=== PATIENT | female | born 2000 | race African-American/Black ===

== ENCOUNTER 2018-12-02 15:32 | Emergency (ER) | payer SELFPAY ==
[2018-12-02 16:08] VITALS: BP 138/95
[2018-12-02] MEDS ORDERED: ONDANSETRON HCL INJ/PF 4 MG/2 ML SDV IV ONE (16:26)
[2018-12-02] MEDS ORDERED: DIPHENHYDRAMINE HCL 50 MG/ML VIAL IV ONE (16:26)
[2018-12-02] MEDS ORDERED: NORMAL SALINE 1000 ML 1,000 ML IV ONE (16:26)
[2018-12-02] MEDS ORDERED: METOCLOPRAMIDE HCL INJ/PF 10 MG/2 ML SDV IV ONE (16:27)
--- NOTE | 2018-12-02 16:30 | ER Document Report ---
ED Medical Screen (RME) - General Chief Complaint: Dizziness Stated Complaint: DIZZY, NAUSEA, LEG NUMBNESS Time Seen by Provider: 12/02/18 16:18 Primary Care Provider: TARA LITTLE MD [Primary Care Provider] - Follow up as needed Mode of Arrival: Ambulatory Information source: Patient Notes: 18-year-old female with a history of lupus and asthma presents emergency dep artment with a 6-week history of headaches, nausea, syncope. Patient states that she has been feeling lightheaded intermittently. She has had one syncopal episode. She denies hitting her head. She states that someone caught her. Patient states that she is also having a chronic headache. She states that it is located on the right side and is a throbbing sensation that radiates to the left neck. She denies any alleviating or exacerbating factors. Not abrupt onset. Not the worst headache. No associated fever or neck pain. She has tried Motrin without much relief of symptoms. Patient states that she is having associated numbness and tingling to her bilateral hands and her bilateral legs. She denies any weakness, speech changes. I have greeted and performed a rapid initial assessment of this patient. A comprehensive ED assessment and evaluation of the patient, analysis of test results and completion of the medical decision making process will be conducted by additional ED providers. PHYSICAL EXAMINATION: GENERAL: Well-appearing, well-nourished and in no acute distress. HEAD: Atraumatic, normocephalic. EYES: Pupils equal round extraocular movements intact, conjunctiva are normal. ENT: Nares patent NECK: Normal range of motion LUNGS: No respiratory distress Musculoskeletal: Normal range of motion NEUROLOGICAL: Normal speech. PSYCH: Normal mood, normal affect. SKIN: Warm, Dry, normal turgor, no rashes or lesions noted. TRAVEL OUTSIDE OF THE [place] IN LAST 30 DAYS: No - Related Data Allergies/Adverse Reactions: rifampin Allergy (Verified 12/02/18 16:12) cats Allergy (Uncoded 12/02/18 15:34) Past Medical History Pulmonary Medical History: Reports: Hx Asthma Renal/ Medical History: Denies: Hx Peritoneal Dialysis - Immunizations Immunizations up to date: Yes Hx Diphtheria, Pertussis, Tetanus Vaccination: Yes Physical Exam - Vital signs Vitals: Temp Pulse Resp BP Pulse Ox 98.1 F 80 20 138/95 H 100 12/02/18 16:07 12/02/18 16:07 12/02/18 16:07 12/02/18 16:07 12/02/18 16:07 Course - Vital Signs Vital signs: Temp Pulse Resp BP Pulse Ox 98.1 F 80 20 138/95 H 100 12/02/18 16:07 12/02/18 16:07 12/02/18 16:07 12/02/18 16:07 12/02/18 16:07 Doctor's Discharge - Discharge Referrals: TARA LITTLE MD [Primary Care Provider] - Follow up as needed
[2018-12-02 16:57] LABS: ABSOLUTE BASOPHILS # (AUTO) 0.1 10^3/uL (0.0-0.2); ABSOLUTE EOSINOPHILS # (AUTO) 0.3 10^3/uL (0.0-0.6); ABSOLUTE LYMPHOCYTES (AUTO) 1.8 10^3/uL (0.5-4.7); ABSOLUTE MONOCYTES (AUTO) 0.6 10^3/uL (0.1-1.4); ABSOLUTE NEUT (AUTO) 2.7 10^3/uL (1.7-8.2); BASOPHILS % (AUTO) 1.1 % (0-2); EOSINOPHILS % (AUTO) 5.3 % (0-6); HEMATOCRIT 38.9 % (36.0-47.0); HEMOGLOBIN 12.5 g/dL (12.0-15.5); LYMPHOCYTES % (AUTO) 32.9 % (13-45); MEAN CORPUSCULAR HGB CONC 32.1 g/dL (32.0-36.0); MEAN CORPUSCULAR VOLUME 75 fl (80-97); MONOCYTES % (AUTO) 11.4 % (3-13); PLATELET COUNT 256 10^3/uL (150-450); RED CELL DISTRIBUTION WIDTH 14.6 % (11.5-14.0); SEGMENTED NEUTROPHILS % (AUTO) 49.3 % (42-78); TOTAL CELLS COUNTED % (AUTO) 100 %; WHITE BLOOD COUNT 5.5 10^3/uL (4.0-10.5)
[2018-12-02 16:58] LABS: APPEARANCE,URINE SLIGHTLY-CLOUDY; BILIRUBIN,URINE NEGATIVE (NEGATIVE); COLOR,URINE YELLOW; GLUCOSE, URINE NEGATIVE (NEGATIVE); KETONES,URINE NEGATIVE (NEGATIVE); LEUKOCYTE ESTERASE,URINE TRACE (NEGATIVE); NITRITE,URINE NEGATIVE (NEGATIVE); PROTEIN,URINE NEGATIVE (NEGATIVE); URINE SPECIFIC GRAVITY 1.018
[2018-12-02 18:30] LABS: ALANINE AMINOTRANSFERASE 25 U/L (9-52); ALBUMIN 4.3 g/dL (3.5-5.0); ALKALINE PHOSPHATASE 64 U/L (38-126); ANION GAP 9 (5-19); ASPARTATE AMINO TRANSFERASE 20 U/L (14-36); BILIRUBIN,DIRECT 0.1 mg/dL (0.0-0.4); BILIRUBIN,TOTAL 0.6 mg/dL (0.2-1.3); BLOOD UREA NITROGEN 11 mg/dL (7-20); CALCIUM 9.2 mg/dL (8.4-10.2); CARBON DIOXIDE 26 mmol/L (22-30); CHLORIDE 107 mmol/L (98-107); GLUCOSE 81 mg/dL (75-110); POTASSIUM 3.8 mmol/L (3.6-5.0); SODIUM 141.8 mmol/L (137-145); TOTAL PROTEIN 7.7 g/dL (6.3-8.2)
--- NOTE | 2018-12-02 19:30 | ER Document Report ---
ED General - General Chief Complaint: Dizziness Stated Complaint: DIZZY, NAUSEA, LEG NUMBNESS Time Seen by Provider: 12/02/18 16:18 Primary Care Provider: TARA LITTLE MD [Primary Care Provider] - Follow up as needed Mode of Arrival: Ambulatory TRAVEL OUTSIDE OF THE [place] IN LAST 30 DAYS: No - HPI Notes: Patient presents the emergency department for evaluation. She has had a headache intermittently for over 6 weeks. She has started having presyncopal and syncopal episodes over the last 36 hours. She states she is not fully passed out all the way. She feels weak and dizzy. She denies any vertiginous symptoms. No recent head injuries. She denies any visual changes at this time, but states she has had "black spots" in front of her vision. She is currently having an autoimmune workup as an outpatient. She was found to have a positive ROSANA. She has a follow-up appointment with her primary care physician this week. She denies any chest pain or shortness of breath. - Related Data Allergies/Adverse Reactions: rifampin Allergy (Verified 12/02/18 16:12) cats Allergy (Uncoded 12/02/18 15:34) Past Medical History - General Information source: Patient, Parent - Social History Smoking Status: Never Smoker Family History: Reviewed & Not Pertinent Patient has suicidal ideation: No Patient has homicidal ideation: No Pulmonary Medical History: Reports: Hx Asthma Renal/ Medical History: Denies: Hx Peritoneal Dialysis - Immunizations Immunizations up to date: Yes Hx Diphtheria, Pertussis, Tetanus Vaccination: Yes Review of Systems - Review of Systems Constitutional: Malaise, Weakness EENT: Other Cardiovascular: No symptoms reported. denies: Chest pain Respiratory: No symptoms reported Gastrointestinal: No symptoms reported Musculoskeletal: No symptoms reported Skin: No symptoms reported Neurological/Psychological: See HPI Physical Exam - Vital signs Vitals: Temp Pulse Resp BP Pulse Ox 98.1 F 80 20 138/95 H 100 12/02/18 16:07 12/02/18 16:07 12/02/18 16:07 12/02/18 16:07 12/02/18 16:07 Notes: Patient is awake and alert, no acute distress. Head is normocephalic, atraumatic. Pupils equal round reactive to light. Posterior pharynx nonerythematous. Neck is supple without thyromegaly or adenopathy, no meningismus. Heart is regular rate and rhythm. Lungs are clear to auscultation bilaterally. Abdomen is soft nontender with normoactive bowel sounds. Extremities without cyanosis, clubbing, edema. Patient is awake, alert, oriented x3. Cranial nerves II through XII are grossly intact without focal neurological deficits. Strength is plus 5 out of 5 bilateral upper and lower extremities. Reflexes are symmetrical. Gait is within normal limits. Course - Re-evaluation Re-evalutation: 12/02/18 19:31 Patient presents to the emergency department for evaluation of headache and presyncopal episodes. Her vital signs are largely unremarkable. Her physical exam is unremarkable. I cannot find a clear etiology for this. Certainly in her age group vasovagal syncope would be the most likely etiology. She has no neurological deficits. Her EKG shows no significant abnormality's. She is feeling improved in regards to her headache. She has continued follow-up as an outpatient. This was discussed at length with the patient and her family and t hey are amenable to discharge. She is to return to the ED with worsening or new concerning symptoms of any sort. - Vital Signs Vital signs: Temp Pulse Resp BP Pulse Ox 98.1 F 80 20 138/95 H 100 12/02/18 16:07 12/02/18 16:07 12/02/18 16:07 12/02/18 16:07 12/02/18 16:07 - Laboratory Result Diagrams: 12/02/18 16:40 12/02/18 18:00 Laboratory results interpreted by me: 12/02/18 12/02/18 16:40 16:40 MCV 75 L MCH 24.0 L RDW 14.6 H Urine Blood SMALL H Urine Urobilinogen 2.0 H Ur Leukocyte Esterase TRACE H - EKG Interpretation by Me Additional EKG results interpreted by me: 12/02/18 19:30 Sinus mechanism with a rate of 75 bpm. Normal axis, intervals, no acute ST-T wave changes concerning for ischemia or infarction. Normal QT interval. Discharge - Discharge Clinical Impression: Syncope, near, Headache Condition: Good Disposition: HOME, SELF-CARE Instructions: Headache ([facility]), Dizziness ([facility]) Additional Instructions: Follow-up with your doctor next week. Return to the emergency department with worsening or new concerning symptoms. Referrals: TARA LITTLE MD [Primary Care Provider] - Follow up as needed
--- NOTE | 2018-12-03 23:57 | EKG REPORT ---
SEVERITY:- NORMAL ECG - SINUS RHYTHM : Confirmed by: Soila Donald 03-Dec-2018 23:55:49
== END 2018-12-02 19:58 | disposition home or self-care (01) ==
LOC: ER 15:32
DX: R55 Syncope and collapse (principal); R42 Dizziness and giddiness; R11.0 Nausea; R20.0 Anesthesia of skin; R51 Headache
CPT/HCPCS: 93005; 99284; 96374; 96375; 36415; 85025; 81025; 80053; 81001; 93010; J1200; J2765; J7030

== ENCOUNTER 2019-03-22 01:16 | Emergency (ER) | payer BC ==
[2019-03-22] MEDS ORDERED: NEOMY SULF/POLYMYX B SULF/HC OTIC SUSP 10 ML AD ONE (05:26)
--- NOTE | 2019-03-22 05:33 | ER Document Report ---
ED ENT - General Chief Complaint: Drainage from Ear Stated Complaint: DISCHARGE FROM EAR Time Seen by Provider: 03/22/19 05:21 Primary Care Provider: TARA LITTLE MD [Primary Care Provider] - Follow up as needed TRAVEL OUTSIDE OF THE [place] IN LAST 30 DAYS: No - HPI Notes: Patient is a 18-year-old female that presents to the emergency department for chief complaint of right ear pain. Patient states she has had pain in her right ear for the last month. She has had intermittent drainage in the right ear for the last 2 weeks. She states it is now difficult to hear out of her right ear. She denies putting anything in her ear including liquids or Q-tips. She states sometimes the drainage appears blood-tinged. She denies any headaches, fevers or sick contacts. Past Medical History: Asthma Past Surgical History: Negative Social History: Denies drugs alcohol and tobacco Family History: Reviewed and noncontributory for presenting illness Allergies: Reviewed, see documented allergy list. REVIEW OF SYSTEMS: CONSTITUTIONAL : No fever No chills No diaphoresis No recent illness EENT: No vision changes No congestion No sore throat Right ear pain CARDIOVASCULAR: No chest pain No palpitations RESPIRATORY: No shortness of breath No cough No difficulty breathing GASTROINTESTINAL: No abdominal pain No nausea No vomiting No diarrhea GENITOURINARY: No dysuria No hematuria No difficulty urinating MUSCULOSKELETAL: No back pain No leg pain No arm pain SKIN: No rashes No lesions LYMPHATIC: No swollen, enlarged glands. NEUROLOGICAL: No lightheadedness No headache No weakness No paresthesias PSYCHIATRIC: No anxiety No depression PHYSICAL EXAMINATION: Vital signs reviewed, nursing noted reviewed. GENERAL: Well-appearing, well-nourished and in no acute distress. HEAD: Atraumatic, normocephalic. EYES: Eyes appear normal, extraocular movements intact, sclera anicteric, conjunctiva are normal. ENT: Right external ear canal edema with purulent drainage and tenderness with pinna movement. No mastoid tenderness bilaterally. Right anterior auricular lymphadenopathy. Nares patent, oropharynx clear without exudates. Moist mucous membranes. NECK: Normal range of motion, supple with anterior chain lymphadenopathy LUNGS: Breath sounds clear to auscultation bilaterally and equal. No wheezes rales or rhonchi. HEART: Regular rate and rhythm without murmurs ABDOMEN: Soft, nontender, normoactive bowel sounds. No rebound, guarding, or rigidity. No masses appreciated. EXTREMITIES: Nontender, good range of motion, no pitting or edema. NEUROLOGICAL: No focal neurological deficits. Moves all extremities spontaneously Motor and sensory grossly intact on exam. PSYCH: Normal mood, normal affect. SKIN: Warm, Dry, normal turgor, no rashes or lesions noted on exposed skin - Related Data Allergies/Adverse Reactions: rifampin Allergy (Verified 12/02/18 16:12) cats Allergy (Uncoded 12/02/18 15:34) Past Medical History - Social History Smoking Status: Never Smoker Family History: Reviewed & Not Pertinent Pulmonary Medical History: Reports: Hx Asthma Renal/ Medical History: Denies: Hx Peritoneal Dialysis - Immunizations Immunizations up to date: Yes Hx Diphtheria, Pertussis, Tetanus Vaccination: Yes Physical Exam - Vital signs Vitals: Temp Pulse Resp BP Pulse Ox 98.4 F 82 16 120/74 100 03/22/19 01:29 03/22/19 01:03/22/19 01:03/22/19 01:03/22/19 01:29 Course - Re-evaluation Re-evalutation: 03/22/19 05:32 Vitals reviewed. Nursing notes reviewed. Patient is afebrile and nontoxic in appearance. She has a right otitis externa. Her right TM is partially visualized and appears normal. There is no mastoid tenderness to suggest acute mastoiditis. Patient will be started on antibiotics. She will follow with her PCP for reevaluation in the next few days. She is stable for discharge. - Vital Signs Vital signs: Temp Pulse Resp BP Pulse Ox 98.4 F 82 16 120/74 100 03/22/19 01:29 03/22/19 01:03/22/19 01:03/22/19 01:03/22/19 01:29 Discharge - Discharge Clinical Impression: Otitis externa Qualifiers: Otitis externa type: unspecified type Chronicity: acute Laterality: right Qualified Code(s): H60.501 - Unspecified acute noninfective otitis externa, right ear Condition: Stable Disposition: HOME, SELF-CARE Instructions: Otitis Externa ([facility]) Additional Instructions: Please return to the emergency department if you have any worsening, or concern of your symptoms. Please return to the emergency department if you develop chest pain, difficulty breathing, severe abdominal pain, or ongoing vomiting. Please follow-up with your primary care physician in 2-3 days and any other recommended physicians. If prescribed, take all medications as directed. If you have any questions or concerns do not hesitate to return the emergency department for evaluation. Take Tylenol or ibuprofen as directed on the label as needed for pain. Do not put anything other than the eardrops in your ears Prescriptions: Neomycin/Polymyxin B Sulf/Hc [Trajbjtj-Aoxxigvhb-Kt Ear Soln] 4 drop AD TID 7 Days solution Referrals: TARA LITTLE MD [Primary Care Provider] - Follow up in 3-5 days
[2019-03-22 05:43] VITALS: BP 137/75
== END 2019-03-22 05:43 | disposition home or self-care (01) ==
LOC: ER 01:16
DX: H60.501 Unspecified acute noninfective otitis externa, right ear (principal); H92.01 Otalgia, right ear
CPT/HCPCS: 99282; J3490

== ENCOUNTER 2019-11-03 22:40 | Emergency (ER) | payer SELFPAY ==
[2019-11-03] MEDS ORDERED: IPRATROPIUM/ALBUTEROL 0.5-2.5 MG/3 ML AMPUL NEB ONE (23:05)
[2019-11-03] MEDS ORDERED: PREDNISONE 20 MG TABLET PO ONE (23:06)
--- NOTE | 2019-11-03 23:15 | ER Document Report ---
ED Medical Screen (RME) - General Chief Complaint: Shortness Of Breath Stated Complaint: SHORTNESS OF BREATH Time Seen by Provider: 11/03/19 23:02 Primary Care Provider: LELO FIORE APRN [Primary Care Provider] - Follow up as needed Notes: 19-year-old female with history of asthma to the emergency department with complaints of about 1 week worth of shortness of breath and worsening asthma. She states that she has been using her Qvar inhaler but has not been helping and now she is out. She denies any fevers or chills. She denies any ling cough. She is never been intubated or hospitalized for her asthma before. She is followed by Dr. Noyola. She does not smoke. I performed a brief medical screening exam on patient. She has inspiratory and expiratory wheezes throughout. Can hear her audibly wheezing in triage. I have placed orders for DuoNeb and prednisone. I will have her further managed and evaluated by main side provider. TRAVEL OUTSIDE OF THE [place] IN LAST 30 DAYS: No - Related Data Allergies/Adverse Reactions: rifampin Allergy (Verified 11/03/19 22:56) cats Allergy (Uncoded 05/02/19 12:15) Past Medical History - Past Medical History Cardiac Medical History: Denies: Hx Coronary Artery Disease, Hx Heart Attack, Hx Hypertension Pulmonary Medical History: Reports: Hx Asthma - albuterol last used 05/09 Denies: Hx Bronchitis, Hx COPD, Hx Pneumonia Neurological Medical History: Denies: Hx Cerebrovascular Accident, Hx Seizures Renal/ Medical History: Denies: Hx Peritoneal Dialysis Musculoskeltal Medical History: Denies Hx Arthritis Skin Medical History: Reports Hx Cellulitis, Reports Hx Psoriasis - Immunizations Immunizations up to date: Yes Hx Diphtheria, Pertussis, Tetanus Vaccination: No Physical Exam - Vital signs Vitals: Temp Pulse Resp BP Pulse Ox 98.7 F 90 22 H 150/76 H 100 11/03/19 22:45 11/03/19 22:45 11/03/19 22:45 11/03/19 22:45 11/03/19 22:45 Course - Vital Signs Vital signs: Temp Pulse Resp BP Pulse Ox 98.7 F 90 22 H 150/76 H 100 11/03/19 22:45 11/03/19 22:45 11/03/19 22:45 11/03/19 22:45 11/03/19 22:45 Doctor's Discharge - Discharge Referrals: LELO FIORE APRN [Primary Care Provider] - Follow up as needed
[2019-11-04] MEDS ORDERED: IPRATROPIUM/ALBUTEROL 0.5-2.5 MG/3 ML AMPUL NEB ONE ×3 (00:39→00:40)
--- NOTE | 2019-11-04 00:48 | ER Document Report ---
ED Respiratory Problem - General Chief Complaint: Shortness Of Breath Stated Complaint: SHORTNESS OF BREATH Time Seen by Provider: 11/03/19 23:02 Primary Care Provider: LELO FIORE APRN [NO LOCAL MD] - Follow up as needed Mode of Arrival: Ambulatory Information source: Patient Notes: 19-year-old female presented to ED for complaint of cough congestion shortness of breath. She states she does have a history of asthma and is supposed to be taking Qvar and albuterol nebulizer. She states she is out of the Qvar and nebulizer since September. TRAVEL OUTSIDE OF THE [place] IN LAST 30 DAYS: No - HPI Patient complains to provider of: Asthma, Cough, Short of breath Onset: Last week Duration: Continuous Initiating Event: Out of meds Quality of pain: No pain Severity: None Pain Level: Denies Cough: Nonproductive Sputum amount: None At home treatment: Bronchodilators, Inhaled steroids Associated symptoms: Short of breath, Wheezing Similar symptoms previously: Yes Recently seen / treated by doctor: No - Related Data Allergies/Adverse Reactions: rifampin Allergy (Verified 11/03/19 23:30) cats Allergy (Uncoded 11/03/19 23:30) Past Medical History - General Information source: Patient - Social History Smoking Status: Never Smoker Frequency of alcohol use: None Drug Abuse: None Family History: Arthritis, Hypertension, Reviewed & Not Pertinent Patient has suicidal ideation: No Patient has homicidal ideation: No - Past Medical History Cardiac Medical History: Reports: None Pulmonary Medical History: Reports: Hx Asthma EENT Medical History: Reports: None Neurological Medical History: Reports: None Endocrine Medical History: Reports: None Renal/ Medical History: Reports: None Malignancy Medical History: Reports: None GI Medical History: Reports: None Musculoskeletal Medical History: Reports None Skin Medical History: Reports Hx Cellulitis, Reports Hx Psoriasis Psychiatric Medical History: Reports: None Traumatic Medical History: Reports: None Infectious Medical History: Reports: None Surgical Hx: Negative Past Surgical History: Reports: None - Immunizations Immunizations up to date: Yes Hx Diphtheria, Pertussis, Tetanus Vaccination: No Review of Systems - Review of Systems Constitutional: No symptoms reported EENT: Nose discharge Cardiovascular: No symptoms reported Respiratory: Cough, Short of breath, Wheezing Gastrointestinal: No symptoms reported Genitourinary: No symptoms reported Female Genitourinary: No symptoms reported Musculoskeletal: No symptoms reported Skin: No symptoms reported Hematologic/Lymphatic: No symptoms reported Neurological/Psychological: No symptoms reported -: Yes All other systems reviewed and negative Physical Exam - Vital signs Vitals: Temp Pulse Resp BP Pulse Ox 98.7 F 90 22 H 150/76 H 100 11/03/19 22:45 11/03/19 22:45 11/03/19 22:45 11/03/19 22:45 11/03/19 22:45 Interpretation: Normal - General General appearance: Appears well, Alert - HEENT Head: Normocephalic, Atraumatic Eyes: Normal Pupils: PERRL Ears: Normal External canal: Normal Tympanic membrane: Normal Sinus: Normal Nasal: Purulent discharge, Swelling Mucous membranes: Normal Pharynx: Normal Neck: Normal - Respiratory Respiratory status: No respiratory distress Chest status: Nontender Breath sounds: Nonproductive cough, Wheezing Chest palpation: Normal - Cardiovascular Rhythm: Regular Heart sounds: Normal auscultation Murmur: No - Abdominal Inspection: Normal Distension: No distension Bowel sounds: Normal Tenderness: Nontender Organomegaly: No organomegaly - Back Back: Normal, Nontender - Extremities General upper extremity: Normal inspection, Nontender, Normal color, Normal ROM, Normal temperature General lower extremity: Normal inspection, Nontender, Normal color, Normal ROM, Normal temperature, Normal weight bearing. No: Mina's sign - Neurological Neuro grossly intact: Yes Cognition: Normal Orientation: AAOx4 Sruthi Coma Scale Eye Opening: Spontaneous Sruthi Coma Scale Verbal: Oriented [place] Coma Scale Motor: Obeys Commands Sruthi Coma Scale Total: 15 Speech: Normal Motor strength normal: LUE, RUE, LLE, RLE Sensory: Normal - Psychological Associated symptoms: Normal affect, Normal mood - Skin Skin Temperature: Warm Skin Moisture: Dry Skin Color: Normal Course - Re-evaluation Re-evalutation: 11/04/19 02:59 Patient stated she felt much better after her treatments. She was discharged home with prescription for prednisone and albuterol nebulizers. She was instructed please follow-up with her primary care to get her normal asthma medications. Patient verbalized understanding agreement treatment plan and patient was discharged home. - Vital Signs Vital signs: Temp Pulse Resp BP Pulse Ox 97.6 F 106 H 21 H 133/63 H 97 11/04/19 01:04 11/04/19 01:04 11/04/19 01:04 11/04/19 01:04 11/04/19 01:04 Discharge - Discharge Clinical Impression: Asthma exacerbation Qualifiers: Asthma severity: mild Asthma persistence: unspecified Qualified Code(s): J45.901 - Unspecified asthma with (acute) exacerbation Condition: Stable Disposition: HOME, SELF-CARE Additional Instructions: ASTHMA: You have been diagnosed as having asthma. This is a condition where there is episodic tightness in the bronchial tubes. Allergies, infections, and polluted or cold air may be contributing factors. Emergency treatment of a severe asthma attack may include adrenaline shots, or bronchodilator aerosol. You may feel lightheaded, have a decreased exercise tolerance and a rapid pulse for an hour or two. Rest and get plenty of fluids. Home treatment of asthma requires bronchodilator drugs. These can be administered by injection, inhalation, or by mouth. Antibiotics and corticosteroids may be required for some patients. You should avoid chemical fumes, dusts, pollens, and exercising in very cold or dry air. If you smoke, stop!! If you develop a fever, increased wheezing, chest pain, or severe shortness of breath, you should contact the doctor immediately. STEROID MEDICATION: You have been given an injection of or oral medicine of the cortisone/steroid class. This medication is used to control inflammation or allergy. Tamir t is usually only given for a short period of time, until the acute process subsides. There are usually no side effects from short-term use of cortisone-like medications. Some persons feel an increased sense of well-being and are not sleepy at bedtime. Long-term use of cortisone medications is best avoided, unless required for a severe condition. If your condition does not remit, or relapses after the course of corticosteroid medication, you should consult your physician. INHALED BRONCHODILATORS: You have received treatment(s) of and/or prescription for an inhaled bronchodilator -- a medication which stimulates the airways in the lung to dilate. This improves the flow of air in asthma, bronchitis, and emphysema. These medicines have some similarity to adrenaline, and can cause similar side effects: shakiness, racing heart, and a sense of nervousness. These side effects decrease with time. Contact your doctor if these side effects are severe. Do not over-use the medicine. Too-frequent use of the inhaler may make it ineffective. Call your doctor if the inhaler is not controlling your symptoms at the prescribed doses. USE OF ACETAMINOPHEN (Tylenol): Acetaminophen may be taken for pain relief or fever control. It's much safer than aspirin, offering a wider range of "safe" dosages. It is safe during . Some brand names are Tylenol, Panadol, Datril, Anacin 3, Tempra, and Liquiprin. Acetaminophen can be repeated every four hours. The following are maximum recommended dosages: WEIGHT Dose Drops Elixir Chewable(80mg) (LBS.) drprs=droppers tsp=teaspoon 6 40 mg 0.4 ml (1/2) 6-11 80 mg 0.8 ml (full) tsp 1 tab 12-16 120 mg 1 1/2 drprs 3/4 tsp 1 1/2 tabs 17-23 160 mg 2 drprs 1 tsp 2 tabs 24-30 240 mg 3 drprs 1 1/2 tsp 3 tabs 30-35 320 mg 2 tsp 4 tabs 36-41 360 mg 2 1/4 tsp 4 1/2 tabs 42-47 400 mg 2 1/2 tsp 5 tabs 48-53 480 mg 3 tsp 6 tabs 54-59 520 mg 3 1/4 tsp 6 1/2 tabs 60-64 560 mg 3 1/2 tsp 7 tabs 65-70 600 mg 3 3/4 tsp 7 1/2 tabs 71-76 640 mg 4 tsp 8 tabs 77-82 720 mg 4 1/2 tsp 9 tabs 83-88 800 mg 5 tsp 10 tabs >89 pounds or adults 650 mg to 900 mg Acetaminophen can be repeated every four hours. Maximum dose not to exceed 4000 mg a day. These maximum recommended dosages are slightly higher than the dosages written on the product container, but these dosages are very safe and below the toxic dosage for acetaminophen. FOLLOW-UP CARE: If you have been referred to a physician for follow-up care, call the physicians office for an appointment as you were instructed or within the next two days. If you experience worsening or a significant change in your symptoms, notify the physician immediately or return to the Emergency Department at any time for re-evaluation. Prescriptions: Prednisone [Sterapred Ds] 1 pkg PO ASDIR PRN 12 Days tab.ds.pk PRN Reason: Albuterol Sulfate [Ventolin 0.042% Neb 1.25 mg/3 mL Ampul] 1.25 mg NEB Q4 #25 vial.neb Referrals: LELO FIORE APRN [NO LOCAL MD] - Follow up as needed
[2019-11-04 01:09] VITALS: BP 133/63
== END 2019-11-04 01:46 | disposition home or self-care (01) ==
LOC: ER 22:40
DX: J45.901 Unspecified asthma with (acute) exacerbation (principal); R06.02 Shortness of breath; R05 Cough; R09.81 Nasal congestion
CPT/HCPCS: 94640 ×2; 99284; J7512; J7620 ×2

== ENCOUNTER 2020-01-02 07:48 | Emergency (ER) | payer BC ==
[2020-01-02] MEDS ORDERED: BACITRACIN ZINC OINTMENT 15 GM TP ONE (08:41)
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
[2020-01-02 09:49] VITALS: BP 114/66
== END 2020-01-02 09:57 | disposition home or self-care (01) ==
LOC: ER 07:48
DX: T23.571A Corrosion of first degree of right wrist, initial encounter (principal); X58.XXXA Exposure to other specified factors, initial encounter
CPT/HCPCS: 99283; J3490

== ENCOUNTER 2020-04-06 08:10 | Emergency (ER) | payer BC ==
[2020-04-06 08:16] VITALS: BP 116/67
[2020-04-06] MEDS ORDERED: CIPROFLOXACIN HCL 500 MG TABLET PO ONE (08:35)
[2020-04-06] MEDS ORDERED: CIPROFLOXACIN HCL/DEXAMETH OTIC DROP 7.5 ML AU ONE (08:39)
--- NOTE | 2020-04-06 08:42 | ER Document Report ---
ED ENT - General Chief Complaint: Drainage from Ear Stated Complaint: EAR PRESSURE,DRAINAGE Time Seen by Provider: 04/06/20 08:16 Primary Care Provider: TARA LITTLE MD [Primary Care Provider] - Follow up as needed Notes: HPI: 19-year-old female who presents today with what she states is some bilateral ear drainage from 1 month. She did receive antibiotic eardrops by the primary care physician but this is not resolve the issue. She denies a history of diabetes, trauma, fever, vomiting, double blurry vision, sore throat, neck pain or stiffness, or any other acute problems. ROS: See HPI Reviewed vital signs and nursing note as charted by RN. PHYSICAL EXAM: CONSTITUTIONAL: Alert and oriented and responds appropriately to questions. Well-appearing; well-nourished HEAD: Normocephalic; atraumatic EYES: PERRL; Conjunctivae clear, sclerae non-icteric ENT: Patient has no mastoid swelling or tenderness. No extrusion of the pinna. No tenderness when I move each pinna. Patient does have some whitish discharge in bilateral external auditory canals. TMs are nonperforated on visualization with some white pus behind each ear. No lip, mouth, tongue, posterior pharyngeal lesions present. No facial swelling NECK: Supple without meningismus; non-tender; no cervical lymphadenopathy, no masses SKIN: No acute lesions noted NEURO: CN 2-12 intact PSYCH: The patient's mood and manner are appropriate. Grooming and personal hygiene are appropriate. TRAVEL OUTSIDE OF THE [place] IN LAST 30 DAYS: No - Related Data Allergies/Adverse Reactions: rifampin Allergy (Verified 01/02/20 08:05) cats Allergy (Uncoded 01/02/20 08:05) Home Medications: Albuterol. Redihaler Past Medical History - Social History Smoking Status: Never Smoker Drug Abuse: Marijuana Family History: Arthritis, Hypertension, Reviewed & Not Pertinent Patient has homicidal ideation: No - Past Medical History Cardiac Medical History: Denies: Hx Coronary Artery Disease, Hx Heart Attack, Hx Hypertension Pulmonary Medical History: Reports: Hx Asthma Denies: Hx Bronchitis, Hx COPD, Hx Pneumonia Neurological Medical History: Denies: Hx Cerebrovascular Accident, Hx Seizures Renal/ Medical History: Denies: Hx Peritoneal Dialysis Musculoskeletal Medical History: Denies Hx Arthritis Skin Medical History: Reports Hx Cellulitis, Reports Hx Psoriasis - Immunizations Immunizations up to date: Yes Hx Diphtheria, Pertussis, Tetanus Vaccination: No Physical Exam - Vital signs Vitals: Temp Pulse Resp BP Pulse Ox 97.7 F 75 20 116/67 100 04/06/20 08:15 04/06/20 08:15 04/06/20 08:15 04/06/20 08:15 04/06/20 08:15 Course - Re-evaluation Re-evalutation: 04/06/20 08:41 Given the history and physical examination we will obtain an Accu-Chek. I did call and speak directly to the ENT physician to help expedite follow-up what appears to be a bilateral otitis externa. He did recommend both p.o. ciprofloxacin and drops. Patient has not missed any menstrual periods. - Vital Signs Vital signs: Temp Pulse Resp BP Pulse Ox 97.7 F 75 20 116/67 100 04/06/20 08:21 04/06/20 08:15 04/06/20 08:15 04/06/20 08:15 04/06/20 08:15 Discharge - Discharge Clinical Impression: Bilateral otitis externa Qualifiers: Otitis externa type: unspecified type Chronicity: acute Qualified Code(s): H60.503 - Unspecified acute noninfective otitis externa, bilateral Condition: Good Disposition: HOME, SELF-CARE Additional Instructions: Come back immediately for any increased drainage, pain, fever, vomiting, loss of hearing, or any other acute problems. Please take 5 drops of the antibiotic solution into bilateral ears twice daily in addition to the by mouth antibiotics. Please follow-up with ENT and tell the office when you call them that you were seen in the emergency department and Dr. Hager wants to see you the end of this upcoming week. Prescriptions: Ciprofloxacin HCl [Cipro 500 mg Tablet] 500 mg PO BID #10 tablet Referrals: TARA LITTLE MD [Primary Care Provider] - Follow up as needed
== END 2020-04-06 09:19 | disposition home or self-care (01) ==
LOC: ER 08:10
DX: H60.503 Unspecified acute noninfective otitis externa, bilateral (principal); H92.13 Otorrhea, bilateral; J45.909 Unspecified asthma, uncomplicated; Z88.8 Allergy status to other drugs, medicaments and biological substances; Z79.899 Other long term (current) drug therapy
CPT/HCPCS: 99283; 82962; J3490

== ENCOUNTER 2020-04-14 17:30 | Emergency (ER) | payer BC ==
[2020-04-14 17:34] VITALS: BP 135/67
[2020-04-14] MEDS ORDERED: DIPH/PERTUSS(ACELL)/TETANUS VAC/PF 0.5 ML SYR (>=10YO) IM ONE (18:17)
[2020-04-14] MEDS ORDERED: HYDROCODONE/ACETAMINOPHEN 5-325 MG TABLET PO ONE (18:17)
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
--- NOTE | 2020-04-14 18:51 | RADIOLOGY REPORT (SQ) ---
EXAM DESCRIPTION: HAND RIGHT 3 VIEWS IMAGES COMPLETED DATE/TIME: 04/14/2020 6:36 pm REASON FOR STUDY: injury COMPARISON: None. EXAM PARAMETERS: NUMBER OF VIEWS: Three views. TECHNIQUE: AP, lateral and oblique radiographic images acquired of the right hand. LIMITATIONS: None. FINDINGS: MINERALIZATION: Normal. BONES: No acute fracture or dislocation. No worrisome bone lesions. JOINTS: No effusions. SOFT TISSUES: No soft tissue swelling. No foreign body. OTHER: No other significant finding. IMPRESSION: NEGATIVE STUDY OF THE RIGHT HAND. NO RADIOGRAPHIC EVIDENCE OF ACUTE INJURY. TECHNICAL DOCUMENTATION: JOB ID: [id number] 2010 [employer]- All Rights Reserved Reading location - IP/workstation name: [email or web address]
== END 2020-04-14 19:35 | disposition home or self-care (01) ==
LOC: ER 17:30
DX: S60.221A Contusion of right hand, initial encounter (principal); S60.511A Abrasion of right hand, initial encounter; M79.641 Pain in right hand; W22.01XA Walked into wall, initial encounter; Z23 Encounter for immunization; J45.909 Unspecified asthma, uncomplicated
CPT/HCPCS: 90715; 99283

== ENCOUNTER 2020-05-04 15:44 | Emergency (ER) | payer BC ==
--- NOTE | 2020-05-04 16:06 | ER Document Report ---
ED Medical Screen (RME) - General Chief Complaint: Abscess Stated Complaint: ABSCESS/VAGINA Time Seen by Provider: 05/04/20 16:02 Primary Care Provider: TARA LITTLE MD [Primary Care Provider] - Follow up as needed Information source: Patient Notes: This 19-year-old female presents to the emergency room today stating that she has an abscess to the medial aspect of her labia. TRAVEL OUTSIDE OF THE [place] IN LAST 30 DAYS: No - Related Data Allergies/Adverse Reactions: rifampin Allergy (Verified 05/04/20 16:03) tree nut Allergy (Verified 05/04/20 16:03) cats Allergy (Uncoded 01/02/20 08:05) dairy Allergy (Uncoded 05/04/20 16:02) Past Medical History - Past Medical History Cardiac Medical History: Denies: Hx Coronary Artery Disease, Hx Heart Attack, Hx Hypertension Pulmonary Medical History: Reports: Hx Asthma Denies: Hx Bronchitis, Hx COPD, Hx Pneumonia Neurological Medical History: Denies: Hx Cerebrovascular Accident, Hx Seizures Renal/ Medical History: Denies: Hx Peritoneal Dialysis Musculoskeltal Medical History: Denies Hx Arthritis Skin Medical History: Reports Hx Cellulitis, Reports Hx Psoriasis - Immunizations Immunizations up to date: Yes Hx Diphtheria, Pertussis, Tetanus Vaccination: No Doctor's Discharge - Discharge Referrals: TARA LITTLE MD [Primary Care Provider] - Follow up as needed
--- NOTE | 2020-05-04 17:01 | ER Document Report ---
ED General - General Chief Complaint: Abscess Stated Complaint: ABSCESS/VAGINA Time Seen by Provider: 05/04/20 16:02 Primary Care Provider: TARA LITTLE MD [Primary Care Provider] - Follow up as needed Notes: CHIEF COMPLAINT: Vaginal cyst on left HPI: 19-year-old female presenting with a tender area on the lower aspect of the vagina on the left for the last 2 to 3 days. States it opened and drained at work and she wanted it evaluated. No current pelvic pain. No fever. ROS: See HPI - all other systems were reviewed and are otherwise negative Constitutional: no fever or recent illness : no dysuria, + vaginal discharge Integumentary: no rash Allergy: no hives MEDICATIONS: I agree with the patient medications as charted by the RN. ALLERGIES: I agree with the allergies as charted by the RN. PAST MEDICAL HISTORY/PAST SURGICAL HISTORY: Reviewed and agree as charted by RN. SOCIAL HISTORY: Reviewed and agree as charted by RN. FAMILY HISTORY: No significant familial comorbid conditions directly related to patient complaint EXAM: Reviewed vital signs as charted by RN. CONSTITUTIONAL: Alert and oriented and responds appropriately to questions. 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 External genitalia normal. There is still slight swelling in the left vaginal opening over the left Bartholin's gland with a small opening present over the glans that exudes a small amount of purulent discharge on palpation BACK: The back appears normal and is non-tender to palpation, there is no CVA tenderness EXT: Normal ROM in all joints; non-tender to palpation; no cyanosis, no effusions, no edema SKIN: Normal color for age and race; warm; dry; good turgor; no acute lesions noted NEURO: Moves all extremities equally; Motor and sensory function intact PSYCH: The patient's mood and manner are appropriate. Grooming and personal hygiene are appropriate. MDM: 19-year-old female likely with a ruptured Bartholin's abscess. Recommend sitz bath's, no indication for further incision and drainage at this time follow-up [employer] TRAVEL OUTSIDE OF THE [place] IN LAST 30 DAYS: No - Related Data Allergies/Adverse Reactions: rifampin Allergy (Verified 05/04/20 16:03) tree nut Allergy (Verified 05/04/20 16:03) cats Allergy (Uncoded 01/02/20 08:05) dairy Allergy (Uncoded 05/04/20 16:02) Past Medical History - General Information source: Patient - Social History Smoking Status: Current Every Day Smoker Frequency of alcohol use: None Drug Abuse: Marijuana Family History: Arthritis, Hypertension, Reviewed & Not Pertinent Patient has homicidal ideation: No - Past Medical History Cardiac Medical History: Denies: Hx Coronary Artery Disease, Hx Heart Attack, Hx Hypertension Pulmonary Medical History: Reports: Hx Asthma Denies: Hx Bronchitis, Hx COPD, Hx Pneumonia Neurological Medical History: Denies: Hx Cerebrovascular Accident, Hx Seizures Renal/ Medical History: Denies: Hx Peritoneal Dialysis Musculoskeletal Medical History: Denies Hx Arthritis Skin Medical History: Reports Hx Cellulitis, Reports Hx Psoriasis - Immunizations Immunizations up to date: Yes Hx Diphtheria, Pertussis, Tetanus Vaccination: No Physical Exam - Vital signs Vitals: Temp 99.1 F 05/04/20 16:07 Course - Vital Signs Vital signs: Temp Pulse Resp BP Pulse Ox 99.1 F 89 16 122/58 L 98 05/04/20 16:26 05/04/20 16:26 05/04/20 16:26 05/04/20 16:26 05/04/20 16:26 Discharge - Discharge Clinical Impression: Bartholin cyst Condition: Stable Disposition: HOME, SELF-CARE Instructions: Bartholin Gland Cyst or Abscess ([facility]) Additional Instructions: Warm sits baths 2-3 times daily to clean the perineum and vaginal region. Follow-up with [facility] for further evaluation and treatment call for appointment. Return for any concerns Referrals: TARA LITTLE MD [Primary Care Provider] - Follow up as needed KAREN OQUENDO MD [ACTIVE PROVISIONAL STAFF] - Follow up as needed
[2020-05-04 17:10] VITALS: BP 115/60
== END 2020-05-04 17:12 | disposition home or self-care (01) ==
LOC: ER 15:44
DX: N75.0 Cyst of Bartholin's gland (principal); N89.8 Other specified noninflammatory disorders of vagina; F17.200 Nicotine dependence, unspecified, uncomplicated; Z88.8 Allergy status to other drugs, medicaments and biological substances; J45.909 Unspecified asthma, uncomplicated
CPT/HCPCS: 99282

== ENCOUNTER 2020-06-19 22:46 | Inpatient (IN) | payer BC ==
[2020-06-19] MEDS ORDERED: IPRATROPIUM/ALBUTEROL 0.5-2.5 MG/3 ML AMPUL NEB ONE (23:26)
[2020-06-19] MEDS ORDERED: PREDNISONE 20 MG TABLET PO ONE (23:27)
--- NOTE | 2020-06-19 23:28 | ER Document Report ---
ED Respiratory Problem - General Chief Complaint: Shortness Of Breath Stated Complaint: SHORTNESS OF BREATH Time Seen by Provider: 06/19/20 23:12 Notes: Patient is a 19-year-old female with a history of asthma that comes to the emergency department for chief complaint of wheezing and occasional cough that started earlier today. She states that she has had mild asthma symptoms for the past 3 weeks but today it became much worse. Previously her symptoms simply resolved with her rescue inhaler. She is out of her home nebulizer medications as well. She denies fever, chest pain, sick exposures, or smoking. She denies any other medical history or any other complaints. She denies . TRAVEL OUTSIDE OF THE [place] IN LAST 30 DAYS: No - Related Data Allergies/Adverse Reactions: rifampin Allergy (Verified 05/04/20 16:03) tree nut Allergy (Verified 05/04/20 16:03) cats Allergy (Uncoded 01/02/20 08:05) dairy Allergy (Uncoded 05/04/20 16:02) Home Medications: Albuterol inhaler Past Medical History - General Information source: Patient - Social History Smoking Status: Never Smoker Chew tobacco use (# tins/day): No Frequency of alcohol use: None Drug Abuse: Marijuana Lives with: Family Family History: Arthritis, Hypertension, Reviewed & Not Pertinent - Past Medical History Cardiac Medical History: Denies: Hx Coronary Artery Disease, Hx Heart Attack, Hx Hypertension Pulmonary Medical History: Reports: Hx Asthma Denies: Hx Bronchitis, Hx COPD, Hx Pneumonia Neurological Medical History: Denies: Hx Cerebrovascular Accident, Hx Seizures Renal/ Medical History: Denies: Hx Peritoneal Dialysis Musculoskeletal Medical History: Denies Hx Arthritis Skin Medical History: Reports Hx Cellulitis, Reports Hx Psoriasis - Immunizations Immunizations up to date: Yes Hx Diphtheria, Pertussis, Tetanus Vaccination: Yes Review of Systems - Review of Systems Constitutional: No symptoms reported EENT: No symptoms reported Cardiovascular: No symptoms reported Respiratory: See HPI Gastrointestinal: No symptoms reported Genitourinary: No symptoms reported Female Genitourinary: No symptoms reported Musculoskeletal: No symptoms reported Skin: No symptoms reported Hematologic/Lymphatic: No symptoms reported Neurological/Psychological: No symptoms reported Physical Exam - Vital signs Vitals: Temp Pulse Resp BP Pulse Ox 99.5 F 107 H 18 130/77 H 99 06/19/20 23:50 06/19/20 23:50 06/19/20 23:50 06/19/20 23:50 06/19/20 23:50 - Notes Notes: GENERAL: Alert, interacts well. No acute distress. HEAD: Normocephalic, atraumatic. EYES: Pupils equal, round, and reactive to light. Extraocular movements intact. ENT: Oral mucosa moist, tongue midline. Oropharynx unremarkable. Airway patent. Nares patent, sinuses non-tender, ear canals unremarkable, TM's intact. NECK: Full range of motion. Supple. Trachea midline. No lymphadenopathy. LUNGS: Decreased breath sounds throughout with expiratory wheezing throughout HEART: Tachycardia, normal rhythm, no murmur ABDOMEN: Soft, non-tender. Non-distended. EXTREMITIES: Moves all 4 extremities spontaneously. No edema, normal radial and dorsalis pedis pulses bilaterally. No cyanosis. BACK: no cervical, thoracic, lumbar midline tenderness. No saddle anesthesia, normal distal neurovascular exam. Moves all extremities in full range of motion. NEUROLOGICAL: Alert and oriented x3. Normal speech. Cranial nerves II through XII grossly intact. Strength 5/5 in all extremities. PSYCH: Normal affect, normal mood. SKIN: Warm, dry, normal turgor. No rashes or lesions noted. Course - Re-evaluation Re-evalutation: On initial evaluation patient is wheezing throughout all lung caicedo and she is tachycardic. She does not have labored breathing, she is alert and otherwise well-appearing, she does not have a fever. Patient will be treated with duo nebs and steroids, chest x-ray pending, she will be reevaluated. On reevaluation patient has resolution of wheezing but now she has scattered rhonchi and she is still tachycardic. Chest x-ray shows possible pneumonia but this is not definite. Because of her worsening appearance additional evaluation was performed, she will be given IV fluids, magnesium, additional duo nebs, and reevaluated. CBC unremarkable other than microcytic anemia, potassium is low at 3.0 but ramya ent has been receiving duo nebs, is negative. Patient reevaluated again, she has increasing tachycardia and she is now wheezing again. D-dimer is positive, this was performed because of patient's worsening tachycardia, CTA was performed. All this was discussed with patient beforehand. CTA does not show pulmonary embolism but does show right sided pneumonia. Patient is been started on treatment for community-acquired pneumonia. Patient is still intermittently wheezing and having coughing episodes with suspected bronchospasm. She did become mildly hypoxic down into the low 90s and was placed on 2 L nasal cannula. She is not in respiratory distress. Discussed options, patient attempted to ambulate but she quickly became very tachycardic at 145 and was placed back in the bed. Because of the pneumonia, repeated wheezing and persistent asthma exacerbation, tachycardia, borderline hypoxia, discussed with patient, will discuss with hospitalist for admission. Discussed with Dr. Chavez, patient accepted to medical floor full admission on COVID-19 floor, pending COVID test. - Vital Signs Vital signs: Temp Pulse Resp BP Pulse Ox 99.5 F 107 H 18 130/77 H 100 06/19/20 23:50 06/19/20 23:50 06/19/20 23:50 06/19/20 23:50 06/20/20 01:29 - Laboratory Result Diagrams: 06/20/20 00:54 06/20/20 00:54 Laboratory results interpreted by me: 06/20/20 06/20/20 06/20/20 00:54 00:54 00:54 Hgb 10.8 L Hct 33.6 L MCV 74 L MCH 23.8 L RDW 15.2 H Lymph % (Auto) 11.1 L Seg Neutrophils % 81.1 H D-Dimer 0.82 H Potassium 3.0 L* BUN 5 L Glucose 122 H - EKG Interpretation by Me Additional EKG results interpreted by me: EKG shows sinus tachycardia at a rate of 101, QTc 436, no T wave inversions or systemic changes in consecutive leads Discharge - Discharge Clinical Impression: Wheezing, Tachycardia Asthma exacerbation Qualifiers: Asthma severity: moderate Asthma persistence: persistent Qualified Code(s): J45.41 - Moderate persistent asthma with (acute) exacerbation Right middle lobe pneumonia Qualifiers: Pneumonia type: due to unspecified organism Qualified Code(s): J18.9 - Pneumonia, unspecified organism Condition: Stable Disposition: ADMITTED INPATIENT Admitting Provider: Kathy (Hospitalist) Unit Admitted: Medical Floor
--- NOTE | 2020-06-20 00:39 | RADIOLOGY REPORT (SQ) ---
CLINICAL INDICATION: cough, shortness of breath. TECHNIQUE: A single portable AP view was obtained of the chest at 0013 hours. COMPARISON: None. FINDINGS: The cardiomediastinal silhouette is enlarged. The lungs demonstrate streaky airspace disease at the bases particularly lingular segment left upper lobe. No evidence of effusion or pneumothorax. The visualized bones are unremarkable. IMPRESSION: Streaky airspace disease most prominent lingular segment left upper lobe. Pneumonia could have this appearance.
[2020-06-20] MEDS ORDERED: NORMAL SALINE 1000 ML 1,000 ML IV ONE (00:47)
[2020-06-20] MEDS ORDERED: MAGNESIUM SULFATE/D5W 1 GM/100 ML RTUPB IV ONE ×2 (00:48→04:46)
[2020-06-20 01:18] LABS: ABSOLUTE EOSINOPHILS # (AUTO) 0.1 10^3/uL (0.0-0.6); ABSOLUTE LYMPHOCYTES (AUTO) 0.8 10^3/uL (0.5-4.7); ABSOLUTE MONOCYTES (AUTO) 0.4 10^3/uL (0.1-1.4); BASOPHILS % (AUTO) 0.4 % (0-2); EOSINOPHILS % (AUTO) 1.9 % (0-6); HEMATOCRIT 33.6 % (36.0-47.0); HEMOGLOBIN 10.8 g/dL (12.0-15.5); LYMPHOCYTES % (AUTO) 11.1 % (13-45); MEAN CORPUSCULAR HEMOGLOBIN 23.8 pg (27.0-33.4); MEAN CORPUSCULAR HGB CONC 32.1 g/dL (32.0-36.0); MEAN CORPUSCULAR VOLUME 74 fl (80-97); MONOCYTES % (AUTO) 5.5 % (3-13); PLATELET COUNT 230 10^3/uL (150-450); RED BLOOD COUNT 4.53 10^6/uL (3.72-5.28); RED CELL DISTRIBUTION WIDTH 15.2 % (11.5-14.0); SEGMENTED NEUTROPHILS % (AUTO) 81.1 % (42-78); TOTAL CELLS COUNTED % (AUTO) 100 %; WHITE BLOOD COUNT 7.4 10^3/uL (4.0-10.5)
[2020-06-20 01:27] LABS: ALKALINE PHOSPHATASE 69 U/L (38-126); ANION GAP 11 (5-19); ASPARTATE AMINO TRANSFERASE 22 U/L (14-36); BILIRUBIN,DIRECT 0.2 mg/dL (0.0-0.4); BILIRUBIN,TOTAL 0.6 mg/dL (0.2-1.3); BLOOD UREA NITROGEN 5 mg/dL (7-20); CALCIUM 8.8 mg/dL (8.4-10.2); CARBON DIOXIDE 23 mmol/L (22-30); CHLORIDE 106 mmol/L (98-107); GLUCOSE 122 mg/dL (75-110); TOTAL PROTEIN 7.8 g/dL (6.3-8.2)
[2020-06-20] MEDS ORDERED: IPRATROPIUM/ALBUTEROL 0.5-2.5 MG/3 ML AMPUL NEB ONE (02:35)
--- NOTE | 2020-06-20 04:22 | RADIOLOGY REPORT (SQ) ---
CT angiogram chest with contrast on 06/20/2020 at 3:48 AM CLINICAL INDICATION: Shortness of breath, cough, tachycardia, elevated d-dimer TECHNIQUE: Multiple axial images are obtained throughout the chest following the administration of IV contrast. Computer generated 3D reconstructions/MIPS were performed. This exam was performed according to our departmental dose-optimization program, which includes automated exposure control, adjustment of the mA and/or kV according to patient size and/or use of iterative reconstruction technique. Total DLP is 442.66 mGy*cm. COMPARISON: None FINDINGS: There is no thoracic aortic aneurysm or dissection. Limited visualized upper abdomen is unremarkable. There is no pleural or pericardial effusion. There are no filling defects within the pulmonary arteries to suggest pulmonary embolus. There is right middle lobe opacity consistent with likely pneumonia. There is mild atelectasis or possibly early pneumonia in the lingula. The lungs are otherwise clear. There are prominent bilateral axillary lymph nodes however these all maintain normal fatty garland with no definite thoracic adenopathy. No bony abnormality is noted. IMPRESSION: 1. Findings consistent with right middle lobe pneumonia with atelectasis or early pneumonia in lingula. 2. No evidence of pulmonary embolus.
[2020-06-20] MEDS ORDERED: CEFTRIAXONE 1 GM/D5W RTU 1 GM/50 ML RTUPB IV ONE (04:33)
[2020-06-20] MEDS ORDERED: AZITHROMYCIN 250 MG TABLET PO ONE (04:33)
[2020-06-20] MEDS ORDERED: METOPROLOL TARTRATE PF/INJ 5 MG/5 ML SDV IV PRN (04:55)
[2020-06-20] MEDS ORDERED: HYDRALAZINE HCL INJ/PF 20 MG/1 ML SDV IV PRN (04:55)
[2020-06-20] MEDS ORDERED: ONDANSETRON HCL INJ/PF 4 MG/2 ML SDV IV PRN (05:15)
[2020-06-20] MEDS ORDERED: ACETAMINOPHEN 325 MG TABLET PO PRN (05:15)
[2020-06-20] MEDS ORDERED: MAGNESIUM HYDROXIDE SUSP 30 ML UDCUP PO PRN (05:15)
--- NOTE | 2020-06-20 05:31 | PDOC H&P ---
History of Present Illness Admission Date/PCP: 06/20/20 05:12 TARA LITTLE MD History of Present Illness: MERCEDEZ CRESPO is a 19 year old female past medical history of intermittent asthma presenting to ED complaining of worsening shortness of breath starting this morning, patient has never been hospitalized for asthma exacerbation neither has been intubated, once a while she gets short of breath and uses rescue inhaler with moderate effect, this morning she did not respond to rescue inhaler and her wheezing and shortness of breath but worse and she presented to ED. Patient also complaining of pleuritic diffuse chest pain associated with nausea, denies any fever, chills, vomiting, abdominal pain, diarrhea, constipation or any urinary symptoms. Patient denies any sick contact, recent travel or having been exposed to live with suspicion of COVID-19 infection. In ED patient was noted to be wheezing and tachypneic, a CTA was negative for PE however it was positive for possible pneumonia. Hospitalist was consulted for admission. Past Medical History Cardiac Medical History: Denies: Coronary Artery Disease, Myocardial Infarction, Hypertension Pulmonary Medical History: Reports: Asthma Denies: Bronchitis, Chronic Obstructive Pulmonary Disease (COPD), Pneumonia Neurological Medical History: Denies: Seizures Musculoskeltal Medical History: Denies: Arthritis Skin Medical History: Reports: Psoriasis Hematology: Reports: Anemia Social History Lives with: Family Smoking Status: Never Smoker Electronic Cigarette use?: No Family History Family History: Arthritis, Hypertension, Reviewed & Not Pertinent Parental Family History Reviewed: Yes Children Family History Reviewed: Yes Sibling(s) Family History Reviewed.: Yes Medication/Allergy Home Medications: Ciprofloxacin HCl [Cipro 500 mg Tablet] 500 mg PO BID #10 tablet 04/06/20 Allergies/Adverse Reactions: rifampin Allergy (Verified 05/04/20 16:03) tree nut Allergy (Verified 05/04/20 16:03) cats Allergy (Uncoded 01/02/20 08:05) dairy Allergy (Uncoded 05/04/20 16:02) Review of Systems Review of Systems: as per hpi Physical Exam Vital Signs: Temp Pulse Resp BP Pulse Ox 99.5 F 107 H 18 130/77 H 100 06/19/20 23:50 06/19/20 23:50 06/19/20 23:50 06/19/20 23:50 06/20/20 01:29 Intake & Output 06/18/20 06/19/20 06/20/20 06:59 06:59 06:59 Intake Total 1100 Balance 1100 Weight 56.699 kg General appearance: PRESENT: no acute distress, mild distress, well-developed, well-nourished Head exam: PRESENT: atraumatic, normocephalic Respiratory exam: PRESENT: accessory muscle use, prolonged expiratory phas, tachypnea, wheezes. ABSENT: rales, rhonchi Cardiovascular exam: PRESENT: RRR, tachycardia. ABSENT: diastolic murmur, rubs, systolic murmur GI/Abdominal exam: PRESENT: normal bowel sounds, soft. ABSENT: distended, guarding, mass, organolmegaly, rebound, tenderness Neurological exam: PRESENT: alert, awake, oriented to person, oriented to place, oriented to time, oriented to situation, CN II-XII grossly intact. ABSENT: motor sensory deficit Psychiatric exam: PRESENT: anxious Results Laboratory Results: 06/20/20 00:54 06/20/20 00:54 06/20/20 06/20/20 06/20/20 00:54 00:54 00:54 WBC 7.4 RBC 4.53 Hgb 10.8 L Hct 33.6 L MCV 74 L MCH 23.8 L MCHC 32.1 RDW 15.2 H Plt Count 230 Seg Neutrophils % 81.1 H Sodium 139.6 Potassium 3.0 L* Chloride 106 Carbon Dioxide 23 Anion Gap 11 BUN 5 L Creatinine 0.55 Est GFR ( Amer) > 60 Glucose 122 H Calcium 8.8 Total Bilirubin 0.6 AST 22 Alkaline Phosphatase 69 Total Protein 7.8 Albumin 4.0 Serum HCG, Qual NEGATIVE Impressions: Chest X-Ray 06/19/20 23:26 IMPRESSION: Streaky airspace disease most prominent lingular segment left upper lobe. Pneumonia could have this appearance. Chest/Abdomen CTA 06/20/20 02:30 IMPRESSION: 1. Findings consistent with right middle lobe pneumonia with atelectasis or early pneumonia in lingula. 2. No evidence of pulmonary embolus. Assessment and Plan - Diagnosis (1) Acute asthma exacerbation Qualifiers: Asthma severity: moderate Asthma persistence: persistent Qualified Code(s): J45.41 - Moderate persistent asthma with (acute) exacerbation Is this a current diagnosis for this admission?: Yes Plan: History of intermittent asthma on rescue inhaler. Presenting with severe wheezing and shortness of breath. Possibly exacerbated due to underlying pneumonia. ABG pending at the time of dictation. Admit to IMCU, IV steroids, LABA, LABA, DuoNebs, BiPAP, incentive spirometry, flutter valve, aggressive pulmonary toileting. (2) Right middle lobe pneumonia Qualifiers: Pneumonia type: due to unspecified organism Qualified Code(s): J18.9 - Pneumonia, unspecified organism Is this a current diagnosis for this admission?: Yes Plan: Possibly community-acquired pneumonia caused by gram-positive's including Streptococcus pneumonia. COVID-19 is a possibility. Admit to IMC, empiric IV antibiotics, IV steroids, sputum culture, blood culture, pulmonary toileting. Given presentation and low-grade fever patient was considered a suspect for COVID-19 and COVID-19 serology has been ordered by ED physician. (3) Acute respiratory failure with hypoxia Is this a current diagnosis for this admission?: Yes Plan: Due to above. Pending ABG. (4) Hypokalemia Is this a current diagnosis for this admission?: Yes Plan: No acute EKG changes. Repleted. Monitor potassium level. Replete as needed. - Time Time Spent with patient: 25-34 minutes Smoking Cessation Education: 3 to 10 minutes Anticipated Discharge Disposition: Home, Self Care Anticipated Discharge Timeframe: within 48 hours
[2020-06-20] MEDS ORDERED: LORAZEPAM INJ 2 MG/1 ML VIAL IV PRN (05:33)
[2020-06-20] MEDS: POTASSI CL 20 MEQ/50 ML RIDER 20 MEQ/50 ML RTUPB IV SCH ×2 (05:41→07:53)
[2020-06-20] MEDS: DEXAMETHASONE SOD PHOSPHATE INJ 4 MG/1 ML VIAL IV SCH ×3 (05:41→21:50)
[2020-06-20] MEDS: NORMAL SALINE 1000 ML 1,000 ML IV PRN ×2 (06:50→17:13)
[2020-06-20] MEDS: IPRATROPIUM/ALBUTEROL 0.5-2.5 MG/3 ML AMPUL NEB SCH ×3 (07:32→20:04)
[2020-06-20 08:32] LABS: ARTERIAL BLOOD BASE EXCESS -5.6 mmol/L; ARTERIAL BLOOD FIO2 room air; ARTERIAL BLOOD H2CO3 0.88 mmol/L (1.05-1.35); ARTERIAL BLOOD HCO3 17.9 mmol/L (20-24); ARTERIAL BLOOD O2 SATURATION 94.5 % (94-98); ARTERIAL BLOOD PCO2 29.1 mmHg (35-45); ARTERIAL BLOOD PH 7.41 (7.35-7.45); ARTERIAL BLOOD PO2 70.2 mmHg (80-100); ARTERIAL BLOOD TOTAL CO2 18.8 mmol/L (21-25)
[2020-06-20] MEDS: GUAIFENESIN 600 MG TABLET.SA PO SCH ×2 (09:50→21:50)
[2020-06-20] MEDS: ENOXAPARIN SODIUM INJ 40 MG/0.4 ML DISP.SYRIN SUBCUT SCH (09:50)
[2020-06-20] MEDS: FAMOTIDINE 20 MG TABLET PO SCH ×2 (09:50→21:50)
[2020-06-20] MEDS: ASCORBIC ACID 500 MG TABLET PO SCH ×2 (09:50→17:12)
[2020-06-20] MEDS: IPRATROPIUM/ALBUTEROL 0.5-2.5 MG/3 ML AMPUL NEB PRN ×2 (09:50→13:30)
--- NOTE | 2020-06-20 10:31 | PDOC PROGRESS REPORT ---
Subjective Progress Note for:: 06/20/20 Subjective:: 19 year old female past medical history of intermittent asthma presenting to ED complaining of worsening shortness of breath starting this morning, patient has never been hospitalized for asthma exacerbation neither has been intubated, once a while she gets short of breath and uses rescue inhaler with moderate effect, this morning she did not respond to rescue inhaler and her wheezing and shortness of breath but worse and she presented to ED. Patient also comp laining of pleuritic diffuse chest pain associated with nausea, denies any fever, chills, vomiting, abdominal pain, diarrhea, constipation or any urinary symptoms. Patient denies any sick contact, recent travel or having been exposed to live with suspicion of COVID-19 infection. In ED patient was noted to be wheezing and tachypneic, a CTA was negative for PE however it was positive for possible pneumonia. Hospitalist was consulted for admission. [id number]-[id number]-old female with history of asthma admitted for shortness of breath found to have right middle lobe pneumonia receiving IV ceftriaxone, azithromycin. Coronavirus testing is pending. Serum potassium is 3.[address] of the chest is negative for PE. Comfortably in the bed getting nebulizer treatments. Reason For Visit: ACUTE ASTHMA EXACERBATION Physical Exam Vital Signs: Temp Pulse Resp BP Pulse Ox 98.9 F 107 H 26 H 120/72 99 06/20/20 05:52 06/20/20 07:32 06/20/20 09:01 06/20/20 09:01 06/20/20 09:01 Intake & Output 06/19/20 06/20/20 06/21/20 06:59 06:59 06:59 Intake Total 1250 100 Balance 1250 100 Weight 56.699 kg General appearance: PRESENT: no acute distress, cooperative Head exam: PRESENT: atraumatic Eye exam: PRESENT: PERRLA Mouth exam: PRESENT: moist, tongue midline Teeth exam: PRESENT: poor dentation Neck exam: ABSENT: carotid bruit, JVD, lymphadenopathy, thyromegaly Respiratory exam: PRESENT: decreased breath sounds Cardiovascular exam: PRESENT: RRR. ABSENT: diastolic murmur, rubs, systolic murmur GI/Abdominal exam: PRESENT: normal bowel sounds, soft. ABSENT: distended, guarding, mass, organolmegaly, rebound, tenderness Rectal exam: PRESENT: deferred Extremities exam: PRESENT: full ROM. ABSENT: calf tenderness, clubbing, pedal edema Neurological exam: PRESENT: alert, awake, oriented to person, oriented to place, oriented to time, oriented to situation, CN II-XII grossly intact. ABSENT: motor sensory deficit Psychiatric exam: PRESENT: appropriate affect, normal mood. ABSENT: homicidal ideation, suicidal ideation Results Laboratory Results: 06/20/20 00:54 06/20/20 00:54 06/20/20 06/20/20 06/20/20 00:54 00:54 00:54 WBC 7.4 RBC 4.53 Hgb 10.8 L Hct 33.6 L MCV 74 L MCH 23.8 L MCHC 32.1 RDW 15.2 H Plt Count 230 Seg Neutrophils % 81.1 H Carbonic Acid HCO3/H2CO3 Ratio ABG pH ABG pCO2 ABG pO2 ABG HCO3 ABG O2 Saturation ABG Base Excess FiO2 Sodium 139.6 Potassium 3.0 L* Chloride 106 Carbon Dioxide 23 Anion Gap 11 BUN 5 L Creatinine 0.55 Est GFR ( Amer) > 60 Glucose 122 H Calcium 8.8 Total Bilirubin 0.6 AST 22 Alkaline Phosphatase 69 Total Protein 7.8 Albumin 4.0 Serum HCG, Qual NEGATIVE 06/20/20 08:05 WBC RBC Hgb Hct MCV MCH MCHC RDW Plt Count Seg Neutrophils % Carbonic Acid 0.88 L HCO3/H2CO3 Ratio 20:1 ABG pH 7.41 ABG pCO2 29.1 L ABG pO2 70.2 L ABG HCO3 17.9 L ABG O2 Saturation 94.5 ABG Base Excess -5.6 FiO2 room air Sodium Potassium Chloride Carbon Dioxide Anion Gap BUN Creatinine Est GFR ( Amer) Glucose Calcium Total Bilirubin AST Alkaline Phosphatase Total Protein Albumin Serum HCG, Qual Impressions: Chest X-Ray 06/19/20 23:26 IMPRESSION: Streaky airspace disease most prominent lingular segment left upper lobe. Pneumonia could have this appearance. Chest/Abdomen CTA 06/20/20 02:30 IMPRESSION: 1. Findings consistent with right middle lobe pneumonia with atelectasis or early pneumonia in lingula. 2. No evidence of pulmonary embolus. Assessment and Plan - Diagnosis (1) Acute asthma exacerbation Qualifiers: Asthma severity: moderate Asthma persistence: persistent Qualified Code(s): J45.41 - Moderate persistent asthma with (acute) exacerbation Is this a current diagnosis for this admission?: Yes Plan: History of intermittent asthma on rescue inhaler. Presenting with severe wheezing and shortness of breath. Possibly exacerbated due to underlying pneumonia. ABG pending at the time of dictation. Admit to IMCU, IV steroids, LABA, LABA, DuoNebs, BiPAP, incentive spirometry, flutter valve, aggressive pulmonary toileting. 06/20/20-patient admitted with acute exacerbation of asthma receiving nebulizer treatments also found to have right middle lobe pneumonia receiving IV antibiotic therapy. Plan is to continue IV steroids to continue long-acting beta agonists, PRN BiPAP, incentive spirometry at this time. (2) Right middle lobe pneumonia Qualifiers: Pneumonia type: due to unspecified organism Qualified Code(s): J18.9 - Pneumonia, unspecified organism Is this a current diagnosis for this admission?: Yes Plan: Possibly community-acquired pneumonia caused by gram-positive's including Streptococcus pneumonia. COVID-19 is a possibility. Admit to IMC, empiric IV antibiotics, IV steroids, sputum culture, blood culture, pulmonary toileting. Given presentation and low-grade fever patient was considered a suspect for COVID-19 and COVID-19 serology has been ordered by ED physician. 06/20/2020-CT scan suggestive of right middle lobe pneumonia coronavirus testing is pending on IV ceftriaxone, IV Zithromax. Plan is to continue the present management at this time. (3) Acute respiratory failure with hypoxia Is this a current diagnosis for this admission?: Yes Plan: Due to above. Pending ABG. 06/20/2020-ABG this morning pH is 7.4, PCO2 29, PO2 70 bicarb of 18 with oxygen saturation of 94.5% on room air. (4) Hypokalemia Is this a current diagnosis for this admission?: Yes Plan: No acute EKG changes. Repleted. Monitor potassium level. Replete as needed. 06/20/2020-serum potassium is 3.0 potassium supplementations provided. - Time Anticipated Discharge Disposition: Home, Self Care Anticipated Discharge Timeframe: within 48 hours
[2020-06-20] MEDS: ZINC SULFATE 220 MG CAPSULE PO SCH (10:49)
--- NOTE | 2020-06-20 11:15 | EKG REPORT ---
SEVERITY:- ABNORMAL ECG - SINUS TACHYCARDIA NONSPECIFIC T ABNORMALITIES, DIFFUSE LEADS : Confirmed by: Vicki Ruvalcaba MD 20-Jun-2020 11:15:37
[2020-06-20] MEDS: OXYCODONE-ACETAMINOPHEN 5-325 MG TABLET PO PRN (19:40)
[2020-06-20] MEDS: CEFTRIAXONE 1 GM/D5W RTU 1 GM/50 ML RTUPB IV SCH (21:51)
[2020-06-20] MEDS: AZITHROMYCIN 500 MG in DEXTROSE 5%-WATER 250 ML IV SCH (21:52)
[2020-06-21] MEDS: DEXAMETHASONE SOD PHOSPHATE INJ 4 MG/1 ML VIAL IV SCH ×3 (06:00→21:24)
[2020-06-21] MEDS: OXYCODONE-ACETAMINOPHEN 5-325 MG TABLET PO PRN ×2 (06:07→21:23)
[2020-06-21] MEDS: IPRATROPIUM/ALBUTEROL 0.5-2.5 MG/3 ML AMPUL NEB PRN (06:19)
[2020-06-21 06:22] LABS: ABSOLUTE LYMPHOCYTES (AUTO) 1.2 10^3/uL (0.5-4.7); ABSOLUTE MONOCYTES (AUTO) 0.5 10^3/uL (0.1-1.4); ABSOLUTE NEUT (AUTO) 6.6 10^3/uL (1.7-8.2); BASOPHILS % (AUTO) 0.1 % (0-2); HEMATOCRIT 34.9 % (36.0-47.0); HEMOGLOBIN 11.1 g/dL (12.0-15.5); MEAN CORPUSCULAR HEMOGLOBIN 23.7 pg (27.0-33.4); MEAN CORPUSCULAR HGB CONC 31.8 g/dL (32.0-36.0); MEAN CORPUSCULAR VOLUME 75 fl (80-97); MONOCYTES % (AUTO) 6.6 % (3-13); PLATELET COUNT 264 10^3/uL (150-450); RED BLOOD COUNT 4.68 10^6/uL (3.72-5.28); RED CELL DISTRIBUTION WIDTH 16.1 % (11.5-14.0); SEGMENTED NEUTROPHILS % (AUTO) 79.3 % (42-78); TOTAL CELLS COUNTED % (AUTO) 100 %; WHITE BLOOD COUNT 8.3 10^3/uL (4.0-10.5)
[2020-06-21 06:46] LABS: ALBUMIN 4.1 g/dL (3.5-5.0); ALKALINE PHOSPHATASE 65 U/L (38-126); ANION GAP 12 (5-19); ASPARTATE AMINO TRANSFERASE 26 U/L (14-36); BILIRUBIN,DIRECT 0.2 mg/dL (0.0-0.4); BILIRUBIN,TOTAL 0.6 mg/dL (0.2-1.3); BLOOD UREA NITROGEN 4 mg/dL (7-20); CALCIUM 9.5 mg/dL (8.4-10.2); CARBON DIOXIDE 17 mmol/L (22-30); CHLORIDE 112 mmol/L (98-107); GLUCOSE 108 mg/dL (75-110); TOTAL PROTEIN 8.2 g/dL (6.3-8.2)
[2020-06-21 07:01] LABS: POTASSIUM 4.9 mmol/L (3.6-5.0)
[2020-06-21] MEDS: IPRATROPIUM/ALBUTEROL 0.5-2.5 MG/3 ML AMPUL NEB SCH ×2 (07:52→14:08)
[2020-06-21] MEDS ORDERED: LEVALBUTEROL HCL NEB 1.25 MG/3 ML AMPUL NEB SCH (08:00)
--- NOTE | 2020-06-21 08:27 | PDOC PROGRESS REPORT ---
Subjective Progress Note for:: 06/21/20 Subjective:: 19 year old female past medical history of intermittent asthma presenting to ED complaining of worsening shortness of breath starting this morning, patient has never been hospitalized for asthma exacerbation neither has been intubated, once a while she gets short of breath and uses rescue inhaler with moderate effect, this morning she did not respond to rescue inhaler and her wheezing and shortness of breath but worse and she presented to ED. Patient also comp laining of pleuritic diffuse chest pain associated with nausea, denies any fever, chills, vomiting, abdominal pain, diarrhea, constipation or any urinary symptoms. Patient denies any sick contact, recent travel or having been exposed to live with suspicion of COVID-19 infection. In ED patient was noted to be wheezing and tachypneic, a CTA was negative for PE however it was positive for possible pneumonia. Hospitalist was consulted for admission. 06/20/[id number]-aihc-old female with history of asthma admitted for shortness of breath found to have right middle lobe pneumonia receiving IV ceftriaxone, azithromycin. Coronavirus testing is pending. Serum potassium is 3.[address] of the chest is negative for PE. Comfortably in the bed getting nebulizer treatments. 06/21/[id number]-qyvf-old female admitted with acute asthma exacerbation, no acute events in the last 24 hours. Afebrile. Coronavirus testing is pending. On examination bilateral entry was decreased bilateral expiratory wheezes present. Reason For Visit: ACUTE ASTHMA EXACERBATION Physical Exam Vital Signs: Temp Pulse Resp BP Pulse Ox 97.6 F 87 16 123/85 100 06/21/20 08:01 06/21/20 07:52 06/21/20 07:52 06/21/20 03:38 06/21/20 07:52 Intake & Output 06/20/20 06/21/20 06/22/20 06:59 06:59 06:59 Intake Total 1250 1990 Balance 1250 1990 Weight 56.699 kg 62 kg General appearance: PRESENT: no acute distress, cooperative, well-developed Head exam: PRESENT: atraumatic Eye exam: PRESENT: PERRLA Mouth exam: PRESENT: moist, tongue midline Teeth exam: PRESENT: poor dentation Respiratory exam: PRESENT: clear to auscultation roni. ABSENT: rales, rhonchi, wheezes Cardiovascular exam: PRESENT: RRR. ABSENT: diastolic murmur, rubs, systolic murmur GI/Abdominal exam: PRESENT: normal bowel sounds, soft. ABSENT: distended, guarding, mass, organolmegaly, rebound, tenderness Rectal exam: PRESENT: deferred Neurological exam: PRESENT: alert, awake, oriented to person, oriented to place, oriented to time, oriented to situation, CN II-XII grossly intact. ABSENT: motor sensory deficit Psychiatric exam: PRESENT: appropriate affect, normal mood. ABSENT: homicidal ideation, suicidal ideation Results Laboratory Results: 06/21/20 05:20 06/21/20 05:20 06/20/20 06/20/20 06/21/20 08:05 14:10 05:20 WBC 8.3 RBC 4.68 Hgb 11.1 L Hct 34.9 L MCV 75 L MCH 23.7 L MCHC 31.8 L RDW 16.1 H Plt Count 264 Seg Neutrophils % 79.3 H Carbonic Acid 0.88 L HCO3/H2CO3 Ratio 20:1 ABG pH 7.41 ABG pCO2 29.1 L ABG pO2 70.2 L ABG HCO3 17.9 L ABG O2 Saturation 94.5 ABG Base Excess -5.6 FiO2 room air Sodium Potassium 3.9 Chloride Carbon Dioxide Anion Gap BUN Creatinine Est GFR ( Amer) Glucose Calcium Magnesium Total Bilirubin AST Alkaline Phosphatase Total Protein Albumin 06/21/20 05:20 WBC RBC Hgb Hct MCV MCH MCHC RDW Plt Count Seg Neutrophils % Carbonic Acid HCO3/H2CO3 Ratio ABG pH ABG pCO2 ABG pO2 ABG HCO3 ABG O2 Saturation ABG Base Excess FiO2 Sodium 140.5 Potassium 4.9 D Chloride 112 H Carbon Dioxide 17 L Anion Gap 12 BUN 4 L Creatinine 0.50 L Est GFR ( Amer) > 60 Glucose 108 Calcium 9.5 Magnesium 2.2 Total Bilirubin 0.6 AST 26 Alkaline Phosphatase 65 Total Protein 8.2 Albumin 4.1 Impressions: Chest X-Ray 06/19/20 23:26 IMPRESSION: Streaky airspace disease most prominent lingular segment left upper lobe. Pneumonia could have this appearance. Chest/Abdomen CTA 06/20/20 02:30 IMPRESSION: 1. Findings consistent with right middle lobe pneumonia with atelectasis or early pneumonia in lingula. 2. No evidence of pulmonary embolus. Assessment and Plan - Diagnosis (1) Acute asthma exacerbation Qualifiers: Asthma severity: moderate Asthma persistence: persistent Qualified Code(s): J45.41 - Moderate persistent asthma with (acute) exacerbation Is this a current diagnosis for this admission?: Yes Plan: History of intermittent asthma on rescue inhaler. Presenting with severe wheezing and shortness of breath. Possibly exacerbated due to underlying pneumonia. ABG pending at the time of dictation. Admit to IMCU, IV steroids, LABA, LABA, DuoNebs, BiPAP, incentive spirometry, flutter valve, aggressive pulmonary toileting. 06/20/20-patient admitted with acute exacerbation of asthma receiving nebulizer treatments also found to have right middle lobe pneumonia receiving IV a ntibiotic therapy. Plan is to continue IV steroids to continue long-acting beta agonists, PRN BiPAP, incentive spirometry at this time. 06/21/20-patient admitted with acute asthma exacerbation. Receiving nebulizer treatments. On oxygen supplementation. Pulse ox is 99% on room air this morning. Coronavirus testing is pending at this time. (2) Right middle lobe pneumonia Qualifiers: Pneumonia type: due to unspecified organism Qualified Code(s): J18.9 - Pneumonia, unspecified organism Is this a current diagnosis for this admission?: Yes Plan: Possibly community-acquired pneumonia caused by gram-positive's including Streptococcus pneumonia. COVID-19 is a possibility. Admit to IMC, empiric IV antibiotics, IV steroids, sputum culture, blood culture, pulmonary toileting. Given presentation and low-grade fever patient was considered a suspect for COVID-19 and COVID-19 serology has been ordered by ED physician. 06/20/2020-CT scan suggestive of right middle lobe pneumonia coronavirus testing is pending on IV ceftriaxone, IV Zithromax. Plan is to continue the present management at this time. 06/21/20-patient is receiving IV ceftriaxone, IV Zithromax for right middle lobe pneumonia. Most likely community-acquired pneumonia. Blood cultures are negative. Plan is to discontinue IV fluids from today WBC count is 8300. (3) Acute respiratory failure with hypoxia Is this a current diagnosis for this admission?: Yes Plan: Due to above. Pending ABG. 06/20/2020-ABG this morning pH is 7.4, PCO2 29, PO2 70 bicarb of 18 with oxygen saturation of 94.5% on room air. (4) Hypokalemia Is this a current diagnosis for this admission?: Yes Plan: No acute EKG changes. Repleted. Monitor potassium level. Replete as needed. 06/20/2020-serum potassium is 3.0 potassium supplementations provided. 06/21/2020-serum potassium today 4.9 hypokalemia is resolved. - Time Anticipated Discharge Disposition: Home, Self Care Anticipated Discharge Timeframe: within 48 hours
[2020-06-21] MEDS: ENOXAPARIN SODIUM INJ 40 MG/0.4 ML DISP.SYRIN SUBCUT SCH (09:32)
[2020-06-21] MEDS: ASCORBIC ACID 500 MG TABLET PO SCH ×2 (09:32→17:21)
[2020-06-21] MEDS: ZINC SULFATE 220 MG CAPSULE PO SCH (09:32)
[2020-06-21] MEDS: FAMOTIDINE 20 MG TABLET PO SCH ×2 (09:32→21:24)
[2020-06-21] MEDS: GUAIFENESIN 600 MG TABLET.SA PO SCH ×2 (09:32→21:23)
[2020-06-21] MEDS: LEVALBUTEROL HCL NEB 1.25 MG/3 ML AMPUL NEB SCH ×3 (09:47→20:06)
[2020-06-21] MEDS: AZITHROMYCIN 500 MG in DEXTROSE 5%-WATER 250 ML IV SCH (21:24)
[2020-06-21] MEDS: CEFTRIAXONE 1 GM/D5W RTU 1 GM/50 ML RTUPB IV SCH (21:24)
[2020-06-22] MEDS: DEXAMETHASONE SOD PHOSPHATE INJ 4 MG/1 ML VIAL IV SCH ×3 (05:31→22:05)
[2020-06-22] MEDS: LEVALBUTEROL HCL NEB 1.25 MG/3 ML AMPUL NEB SCH ×3 (08:45→20:52)
--- NOTE | 2020-06-22 09:24 | PDOC PROGRESS REPORT ---
Subjective Progress Note for:: 06/22/20 Subjective:: 19 year old female past medical history of intermittent asthma presenting to ED complaining of worsening shortness of breath starting this morning, patient has never been hospitalized for asthma exacerbation neither has been intubated, once a while she gets short of breath and uses rescue inhaler with moderate effect, this morning she did not respond to rescue inhaler and her wheezing and shortness of breath but worse and she presented to ED. Patient also comp laining of pleuritic diffuse chest pain associated with nausea, denies any fever, chills, vomiting, abdominal pain, diarrhea, constipation or any urinary symptoms. Patient denies any sick contact, recent travel or having been exposed to live with suspicion of COVID-19 infection. In ED patient was noted to be wheezing and tachypneic, a CTA was negative for PE however it was positive for possible pneumonia. Hospitalist was consulted for admission. 06/20/[id number]-rbtv-old female with history of asthma admitted for shortness of breath found to have right middle lobe pneumonia receiving IV ceftriaxone, azithromycin. Coronavirus testing is pending. Serum potassium is 3.[address] of the chest is negative for PE. Comfortably in the bed getting nebulizer treatments. 06/21/[id number]-nlib-old female admitted with acute asthma exacerbation, no acute events in the last 24 hours. Afebrile. Coronavirus testing is pending. On examination bilateral entry was decreased bilateral expiratory wheezes present. 06/22/[id number]-oooy-old female admitted for asthma exacerbation on examination bilateral extensive wheezing is present receiving nebulizer treatments and incentive spirometry. No acute events in the last 24 hours afebrile. Reason For Visit: ACUTE ASTHMA EXACERBATION Physical Exam Vital Signs: Temp Pulse Resp BP Pulse Ox 98.0 F 91 16 132/65 H 95 06/22/20 08:11 06/22/20 08:38 06/22/20 08:38 06/22/20 08:11 06/22/20 08:38 Intake & Output 06/21/20 06/22/20 06/23/20 06:59 06:59 06:59 Intake Total 1990 2810 Balance 1990 2810 Weight 62 kg 61.8 kg General appearance: PRESENT: no acute distress, cooperative, well-developed Head exam: PRESENT: atraumatic Eye exam: PRESENT: PERRLA Mouth exam: PRESENT: moist, tongue midline Teeth exam: PRESENT: poor dentation Neck exam: ABSENT: carotid bruit, JVD, lymphadenopathy, thyromegaly Respiratory exam: PRESENT: decreased breath sounds, wheezes Cardiovascular exam: PRESENT: RRR. ABSENT: diastolic murmur, rubs, systolic murmur GI/Abdominal exam: PRESENT: normal bowel sounds, soft. ABSENT: distended, guarding, mass, organolmegaly, rebound, tenderness Rectal exam: PRESENT: deferred Neurological exam: PRESENT: alert, awake, oriented to person, oriented to place, oriented to time, oriented to situation, CN II-XII grossly intact. ABSENT: motor sensory deficit Psychiatric exam: PRESENT: appropriate affect, normal mood. ABSENT: homicidal ideation, suicidal ideation Results Laboratory Results: 06/21/20 05:20 06/21/20 05:20 Impressions: Chest X-Ray 06/19/20 23:26 IMPRESSION: Streaky airspace disease most prominent lingular segment left upper lobe. Pneumonia could have this appearance. Chest/Abdomen CTA 06/20/20 02:30 IMPRESSION: 1. Findings consistent with right middle lobe pneumonia with atelectasis or early pneumonia in lingula. 2. No evidence of pulmonary embolus. Assessment and Plan - Diagnosis (1) Acute asthma exacerbation Qualifiers: Asthma severity: moderate Asthma persistence: persistent Qualified Code(s): J45.41 - Moderate persistent asthma with (acute) exacerbation Is this a current diagnosis for this admission?: Yes Plan: History of intermittent asthma on rescue inhaler. Presenting with severe wheezing and shortness of breath. Possibly exacerbated due to underlying pneumonia. ABG pending at the time of dictation. Admit to IMCU, IV steroids, LABA, LABA, DuoNebs, BiPAP, incentive spirometry, long-acting beta agonist, IV steroids. Flutter valve, aggressive pulmonary t oileting. 06/20/20-patient admitted with acute exacerbation of asthma receiving nebulizer treatments also found to have right middle lobe pneumonia receiving IV antibiotic therapy. Plan is to continue IV steroids to continue long-acting beta agonists, PRN BiPAP, incentive spirometry at this time. 06/21/20-patient admitted with acute asthma exacerbation. Receiving nebulizer treatments. On oxygen supplementation. Pulse ox is 99% on room air this morning. Coronavirus testing is pending at this time. 06/22/20-pulse ox today's 99% on room air on examination bilateral extensive wheezing is present. Plan is to continue IV steroids, nebulizer treatments and incentive spirometry. (2) Right middle lobe pneumonia Qualifiers: Pneumonia type: due to unspecified organism Qualified Code(s): J18.9 - Pneumonia, unspecified organism Is this a current diagnosis for this admission?: Yes Plan: Possibly community-acquired pneumonia caused by gram-positive's including Strep tococcus pneumonia. COVID-19 is a possibility. Admit to C, empiric IV antibiotics, IV steroids, sputum culture, blood culture, pulmonary toileting. Given presentation and low-grade fever patient was considered a suspect for COVID-19 and COVID-19 serology has been ordered by ED physician. 06/20/2020-CT scan suggestive of right middle lobe pneumonia coronavirus testing is pending on IV ceftriaxone, IV Zithromax. Plan is to continue the present management at this time. 06/21/20-patient is receiving IV ceftriaxone, IV Zithromax for right middle lobe pneumonia. Most likely community-acquired pneumonia. Blood cultures are negative. Plan is to discontinue IV fluids from today WBC count is 8300. 06/22/2020-patient came with right middle lobe pneumonia blood cultures are negative plan is to continue IV ceftriaxone, Zithromax at this time. (3) Acute respiratory failure with hypoxia Is this a current diagnosis for this admission?: Yes Plan: Due to above. Pending ABG. 06/20/2020-ABG this morning pH is 7.4, PCO2 29, PO2 70 bicarb of 18 with oxygen saturation of 94.% on room air. 06/22/2020-patient admitted with acute on chronic respiratory failure with hypoxia and pulse ox is 99% on room air. (4) Hypokalemia Is this a current diagnosis for this admission?: Yes Plan: No acute EKG changes. Repleted. Monitor potassium level. Replete as needed. 06/20/2020-serum potassium is 3.0 potassium supplementations provided. 06/21/2020-serum potassium today 4.9 hypokalemia is resolved. - Time Anticipated Discharge Disposition: Home, Self Care Anticipated Discharge Timeframe: within 24 hours
[2020-06-22] MEDS: ASCORBIC ACID 500 MG TABLET PO SCH ×2 (10:43→18:03)
[2020-06-22] MEDS: GUAIFENESIN 600 MG TABLET.SA PO SCH ×2 (10:43→22:05)
[2020-06-22] MEDS: ENOXAPARIN SODIUM INJ 40 MG/0.4 ML DISP.SYRIN SUBCUT SCH (10:44)
[2020-06-22] MEDS: ZINC SULFATE 220 MG CAPSULE PO SCH (10:44)
[2020-06-22] MEDS: FAMOTIDINE 20 MG TABLET PO SCH ×2 (10:44→22:05)
[2020-06-22] MEDS ORDERED: AZITHROMYCIN INJ 500 MG VIAL IV ONE (22:02)
[2020-06-22] MEDS: CEFTRIAXONE 1 GM/D5W RTU 1 GM/50 ML RTUPB IV SCH (22:05)
[2020-06-23] MEDS: AZITHROMYCIN 500 MG in DEXTROSE 5%-WATER 250 ML IV SCH ×2
[2020-06-23] MEDS: DEXAMETHASONE SOD PHOSPHATE INJ 4 MG/1 ML VIAL IV SCH (05:11)
[2020-06-23 06:29] LABS: ABSOLUTE LYMPHOCYTES (AUTO) 1.3 10^3/uL (0.5-4.7); ABSOLUTE MONOCYTES (AUTO) 0.6 10^3/uL (0.1-1.4); ABSOLUTE NEUT (AUTO) 6.6 10^3/uL (1.7-8.2); BASOPHILS % (AUTO) 0.2 % (0-2); HEMATOCRIT 38.6 % (36.0-47.0); HEMOGLOBIN 12.3 g/dL (12.0-15.5); LYMPHOCYTES % (AUTO) 14.9 % (13-45); MEAN CORPUSCULAR HEMOGLOBIN 23.7 pg (27.0-33.4); MEAN CORPUSCULAR VOLUME 74 fl (80-97); MONOCYTES % (AUTO) 7.5 % (3-13); RED CELL DISTRIBUTION WIDTH 15.6 % (11.5-14.0); SEGMENTED NEUTROPHILS % (AUTO) 77.4 % (42-78); TOTAL CELLS COUNTED % (AUTO) 100 %; WHITE BLOOD COUNT 8.5 10^3/uL (4.0-10.5)
[2020-06-23 06:45] LABS: ALBUMIN 4.2 g/dL (3.5-5.0); ALKALINE PHOSPHATASE 57 U/L (38-126); ANION GAP 14 (5-19); ASPARTATE AMINO TRANSFERASE 19 U/L (14-36); BILIRUBIN,DIRECT 0.2 mg/dL (0.0-0.4); BILIRUBIN,TOTAL 0.5 mg/dL (0.2-1.3); BLOOD UREA NITROGEN 13 mg/dL (7-20); CALCIUM 9.9 mg/dL (8.4-10.2); CARBON DIOXIDE 19 mmol/L (22-30); CHLORIDE 105 mmol/L (98-107); GLUCOSE 114 mg/dL (75-110); POTASSIUM 4.7 mmol/L (3.6-5.0); TOTAL PROTEIN 8.3 g/dL (6.3-8.2)
[2020-06-23 07:21] LABS: PLATELET COUNT 278 10^3/uL (150-450)
[2020-06-23] MEDS: FAMOTIDINE 20 MG TABLET PO SCH (09:16)
[2020-06-23] MEDS: ZINC SULFATE 220 MG CAPSULE PO SCH (09:16)
[2020-06-23] MEDS: GUAIFENESIN 600 MG TABLET.SA PO SCH (09:16)
[2020-06-23] MEDS: ENOXAPARIN SODIUM INJ 40 MG/0.4 ML DISP.SYRIN SUBCUT SCH (09:16)
[2020-06-23] MEDS: ASCORBIC ACID 500 MG TABLET PO SCH (09:16)
[2020-06-23] MEDS: LEVALBUTEROL HCL NEB 1.25 MG/3 ML AMPUL NEB SCH (09:26)
[2020-06-23 09:46] VITALS: BP 139/68
[2020-06-23] MEDS ORDERED: DOXYCYCLINE HYCLATE 100 MG TABLET PO SCH (10:00)
--- NOTE | 2020-06-23 10:47 | PDOC DISCHARGE SUMMARY ---
Impression - Admit/DC Date/PCP Admission Date/Primary Care Provider: 06/20/20 05:12 TARA LITTLE MD Discharge Date: 06/23/20 - Discharge Diagnosis (1) Acute asthma exacerbation Is this a current diagnosis for this admission?: Yes (2) Right middle lobe pneumonia Is this a current diagnosis for this admission?: Yes (3) Acute respiratory failure with hypoxia Is this a current diagnosis for this admission?: Yes (4) Hypokalemia Is this a current diagnosis for this admission?: Yes - Assessment Summary: (1) Acute asthma exacerbation Qualifiers: Asthma severity: moderate Asthma persistence: persistent Qualified Code(s): J45.41 - Moderate persistent asthma with (acute) exacerbation Is this a current diagnosis for this admission?: Yes Plan: History of intermittent asthma on rescue inhaler. Presenting with severe wheezing and shortness of breath. Possibly exacerbated due to underlying pneumonia. ABG pending at the time of dictation. Admit to IMCU, IV steroids, LABA, LABA, DuoNebs, BiPAP, incentive spirometry, long-acting beta agonist, IV steroids. Flutter valve, aggressive pulmonary toileting. 06/20/20-patient admitted with acute exacerbation of asthma receiving nebulizer treatments also found to have right middle lobe pneumonia receiving IV antibiotic therapy. Plan is to continue IV steroids to continue long-acting beta agonists, PRN BiPAP, incentive spirometry at this time. 06/21/20-patient admitted with acute asthma exacerbation. Receiving nebulizer treatments. On oxygen supplementation. Pulse ox is 99% on room air this morning. Coronavirus testing is pending at this time. 06/22/20-pulse ox today's 99% on room air on examination bilateral extensive wheezing is present. Plan is to continue IV steroids, nebulizer treatments and incentive spirometry. 06/23/2020-pulse ox today is 100% on room air. Patient is expressing desire to go home today. COVID-19 is negative. Patient was given a prescription for duoneb nebs every 6 as needed and doxycycline 100 mg p.o. twice daily for 1 week. (2) Right middle lobe pneumonia Qualifiers: Pneumonia type: due to unspecified organism Qualified Code(s): J18.9 - Pneumonia, unspecified organism Is this a current diagnosis for this admission?: Yes Plan: Possibly community-acquired pneumonia caused by gram-positive's including Streptococcus pneumonia. COVID-19 is a possibility. Admit to IM, empiric IV antibiotics, IV steroids, sputum culture, blood culture, pulmonary toileting. Given presentation and low-grade fever patient was considered a suspect for COVID-19 and COVID-19 serology has been ordered by ED physician. 06/20/2020-CT scan suggestive of right middle lobe pneumonia coronavirus testing is pending on IV ceftriaxone, IV Zithromax. Plan is to continue the present management at this time. 06/21/20-patient is receiving IV ceftriaxone, IV Zithromax for right middle lobe pneumonia. Most likely community-acquired pneumonia. Blood cultures are negative. Plan is to discontinue IV fluids from today WBC count is 8300. 06/22/2020-patient came with right middle lobe pneumonia blood cultures are negative plan is to continue IV ceftriaxone, Zithromax at this time. 3120-patient is going home on doxycycline 100 mg p.o. twice daily for 1 week. Blood cultures are negative during the hospital stay. Afebrile. Blood pressures are stable. WBC within normal limits. (3) Acute respiratory failure with hypoxia Is this a current diagnosis for this admission?: Yes Plan: Due to above. Pending ABG. 06/20/2020-ABG this morning pH is 7.4, PCO2 29, PO2 70 bicarb of 18 with oxygen saturation of 94.% on room air. 06/22/2020-patient admitted with acute on chronic respiratory failure with hypoxia and pulse ox is 99% on room air. 06/23/2020-pulse ox is 100% room air today. (4) Hypokalemia Is this a current diagnosis for this admission?: Yes Plan: No acute EKG changes. Repleted. Monitor potassium level. Replete as needed. 06/20/2020-serum potassium is 3.0 potassium supplementations provided. 06/21/2020-serum potassium today 4.9 hypokalemia is resolved. - Additional Information Discharge Diet: Cardiac Discharge Activity: Activity As Tolerated Referrals: TARA LITTLE MD [Primary Care Provider] - 06/24/20 2:15 pm Prescriptions: Ipratropium/Albuterol Sulfate [Duoneb 3 ml Ampul] 3 ml NEB RTQ6HP PRN 14 Days #60 [email or web address] PRN Reason: Doxycycline Hyclate [Vibramycin 100 mg Tablet] 100 mg PO Q12 7 Days #14 tablet Home Medications: Ascorbic Acid [Vitamin C 500 mg Tablet] 500 mg PO BID tablet 06/23/20 Doxycycline Hyclate [Vibramycin 100 mg Tablet] 100 mg PO Q12 7 Days #14 tablet 06/23/20 Ipratropium/Albuterol Sulfate [Duoneb 3 ml Ampul] 3 ml NEB RTQ6HP PRN 14 Days #60 [email or web address] 06/23/20 History of Present Illiness History of Present Illness: MERCEDEZ CRESPO is a 19 year old female 19 year old female past medical history of intermittent asthma presenting to ED complaining of worsening shortness of breath starting this morning, patient has never been hospitalized for asthma exacerbation neither has been intubated, once a while she gets short of breath and uses rescue inhaler with moderate effect, this morning she did not respond to rescue inhaler and her wheezing and shortness of breath but worse and she presented to ED. Patient also complain ing of pleuritic diffuse chest pain associated with nausea, denies any fever, chills, vomiting, abdominal pain, diarrhea, constipation or any urinary symptoms. Patient denies any sick contact, recent travel or having been exposed to live with suspicion of COVID-19 infection. In ED patient was noted to be wheezing and tachypneic, a CTA was negative for PE however it was positive for possible pneumonia. Hospitalist was consulted for admission. Hospital Course Hospital Course: 19 year old female past medical history of intermittent asthma presenting to ED complaining of worsening shortness of breath starting this morning, patient has never been hospitalized for asthma exacerbation neither has been intubated, once a while she gets short of breath and uses rescue inhaler with moderate effect, this morning she did not respond to rescue inhaler and her wheezing and shortness of breath but worse and she presented to ED. Patient also complaining of pleuritic diffuse chest pain associated with nausea, denies any fever, chills, vomiting, abdominal pain, diarrhea, constipation or any urinary symptoms. Patient denies any sick contact, recent travel or having been exposed to live with suspicion of COVID-19 infection. In ED patient was noted to be wheezing and tachypneic, a CTA was negative for PE however it was positive for possible pneumonia. Hospitalist was consulted for admission. 06/20/[id number]-wemk-old female with history of asthma admitted for shortness of breath found to have right middle lobe pneumonia receiving IV ceftriaxone, alexys thromycin. Coronavirus testing is pending. Serum potassium is 3.[address] of the chest is negative for PE. Comfortably in the bed getting nebulizer treatments. 06/21/20200020-68-mift-old female admitted with acute asthma exacerbation, no acute events in the last 24 hours. Afebrile. Coronavirus testing is pending. On examination bilateral entry was decreased bilateral expiratory wheezes present. 06/22/[id number]-kxtk-old female admitted for asthma exacerbation on examination bilateral extensive wheezing is present receiving nebulizer treatments and incentive spirometry. No acute events in the last 24 hours afebrile. 3120-no acute events in the last 24 hours afebrile. Patient expressing desire to go home today. Patient gives a prescription for DuoNeb nebulization and do xycycline to use at home. Physical Exam Vital Signs: Temp Pulse Resp BP Pulse Ox 98.4 F 73 16 139/68 H 99 06/23/20 09:43 06/23/20 09:43 06/23/20 09:43 06/23/20 09:43 06/23/20 09:43 Intake & Output 06/22/20 06/23/20 06/24/20 06:59 06:59 06:59 Intake Total 2810 792 Balance 2810 792 Weight 61.8 kg 45.9 kg General appearance: PRESENT: no acute distress, cooperative, well-developed Head exam: PRESENT: atraumatic Eye exam: PRESENT: PERRLA Mouth exam: PRESENT: moist, tongue midline Teeth exam: PRESENT: poor dentation Neck exam: PRESENT: carotid bruit Respiratory exam: PRESENT: decreased breath sounds, wheezes Cardiovascular exam: PRESENT: RRR. ABSENT: diastolic murmur, rubs, systolic mur mur Pulses: PRESENT: normal dorsalis pedis pul GI/Abdominal exam: PRESENT: normal bowel sounds, soft. ABSENT: distended, guarding, mass, organolmegaly, rebound, tenderness Rectal exam: PRESENT: deferred Extremities exam: PRESENT: full ROM. ABSENT: calf tenderness, clubbing, pedal edema Neurological exam: PRESENT: alert, awake, oriented to person, oriented to place, oriented to time, oriented to situation, CN II-XII grossly intact. ABSENT: motor sensory deficit Results Laboratory Results: WBC 8.5 10^3/uL (4.0-10.5) 06/23/20 04:36 RBC 5.20 10^6/uL (3.72-5.28) 06/23/20 04:36 Hgb 12.3 g/dL (12.0-15.5) 06/23/20 04:36 Hct 38.6 % (36.0-47.0) 06/23/20 04:36 MCV 74 fl (80-97) L 06/23/20 04:36 MCH 23.7 pg (27.0-33.4) L 06/23/20 04:36 MCHC 32.0 g/dL (32.0-36.0) 06/23/20 04:36 RDW 15.6 % (11.5-14.0) H 06/23/20 04:36 Plt Count 278 10^3/uL (150-450) 06/23/20 04:36 Lymph % (Auto) 14.9 % (13-45) 06/23/20 04:36 [place] % (Auto) 7.5 % (3-13) 06/23/20 04:36 Eos % (Auto) 0.0 % (0-6) 06/23/20 04:36 Baso % (Auto) 0.2 % (0-2) 06/23/20 04:36 Absolute Neuts (auto) 6.6 10^3/uL (1.7-8.2) 06/23/20 04:36 Absolute Lymphs (auto) 1.3 10^3/uL (0.5-4.7) 06/23/20 04:36 Absolute Monos (auto) 0.6 10^3/uL (0.1-1.4) 06/23/20 04:36 Absolute Eos (auto) 0.0 10^3/uL (0.0-0.6) 06/23/20 04:36 Absolute Basos (auto) 0.0 10^3/uL (0.0-0.2) 06/23/20 04:36 Seg Neutrophils % 77.4 % (42-78) 06/23/20 04:36 D-Dimer 0.82 ug/mL (0.00-0.50) H 06/20/20 00:54 Carbonic Acid 0.88 mmol/L (1.05-1.35) L 06/20/20 08:05 HCO3/H2CO3 Ratio 20:1 06/20/20 08:05 ABG pH 7.41 (7.35-7.45) 06/20/20 08:05 ABG pCO2 29.1 mmHg (35-45) L 06/20/20 08:05 ABG pO2 70.2 mmHg (80-100) L 06/20/20 08:05 ABG HCO3 17.9 mmol/L (20-24) L 06/20/20 08:05 ABG Total CO2 18.8 mmol/L (21-25) L 06/20/20 08:05 ABG O2 Saturation 94.5 % (94-98) 06/20/20 08:05 ABG Base Excess -5.6 mmol/L 06/20/20 08:05 FiO2 room air 06/20/20 08:05 Sodium 138.1 mmol/L (137-145) 06/23/20 04:36 Potassium 4.7 mmol/L (3.6-5.0) 06/23/20 04:36 Chloride 105 mmol/L (98-107) 06/23/20 04:36 Carbon Dioxide 19 mmol/L (22-30) L 06/23/20 04:36 Anion Gap 14 (5-19) 06/23/20 04:36 BUN 13 mg/dL (7-20) 06/23/20 04:36 Creatinine 0.62 mg/dL (0.52-1.25) 06/23/20 04:36 Est GFR ( Amer) > 60 (>60) 06/23/20 04:36 Est GFR (MDRD) Non-Af > 60 (>60) 06/23/20 04:36 Glucose 114 mg/dL (75-110) H 06/23/20 04:36 Hemoglobin A1c % 5.2 % (4.7-6.0) 06/20/20 00:54 Calcium 9.9 mg/dL (8.4-10.2) 06/23/20 04:36 Magnesium 1.6 mg/dL (1.6-2.3) 06/22/20 10:19 Total Bilirubin 0.5 mg/dL (0.2-1.3) 06/23/20 04:36 Direct Bilirubin 0.2 mg/dL (0.0-0.4) 06/23/20 04:36 Neonat Total Bilirubin Not Reportable 06/23/20 04:36 Neonat Direct Bilirubin Not Reportable 06/23/20 04:36 Neonat Indirect Bili Not Reportable 06/23/20 04:36 AST 19 U/L (14-36) 06/23/20 04:36 ALT 11 U/L (<35) 06/23/20 04:36 Alkaline Phosphatase 57 U/L (38-126) 06/23/20 04:36 Total Protein 8.3 g/dL (6.3-8.2) H 06/23/20 04:36 Albumin 4.2 g/dL (3.5-5.0) 06/23/20 04:36 Serum HCG, Qual NEGATIVE (NEGATIVE) 06/20/20 00:54 COVID-19 Source NASOPHARYNGEAL 06/20/20 05:13 COVID-19 (STEPHEN) NOT DETECTED 06/20/20 05:13 Impressions: Chest X-Ray 06/19/20 23:26 IMPRESSION: Streaky airspace disease most prominent lingular segment left upper lobe. Pneumonia could have this appearance. Chest/Abdomen CTA 06/20/20 02:30 IMPRESSION: 1. Findings consistent with right middle lobe pneumonia with atelectasis or early pneumonia in lingula. 2. No evidence of pulmonary embolus. Plan Plan of Treatment: Patient is advised to continue DuoNeb [employer] at home and given a prescription for doxycycline 100 mg p.o. twice daily for 1 week. Time Spent: Greater than 30 Minutes Stroke Is this a Stroke Patient?: No Acute Heart Failure - Is this a Heart Failure Patient?: No
== END 2020-06-23 11:11 | disposition home or self-care (01) | DRG 202 ==
LOC: ER 22:46 → EH 06-20 05:12 → 3W 06-20 18:45
PROVIDERS: ADMIT Internal Medicine; ATTEND Internal Medicine
DX: J45.41 Moderate persistent asthma with (acute) exacerbation (principal); J15.4 Pneumonia due to other streptococci; E87.6 Hypokalemia; Z20.828 Contact with and (suspected) exposure to other viral communicable diseases; Z91.011 Allergy to milk products; Z91.018 Allergy to other foods; Z88.8 Allergy status to other drugs, medicaments and biological substances; Z91.048 Other nonmedicinal substance allergy status
CPT/HCPCS: 36415; 36600; 71045; 71275; 80053; 82803; 83036; 83735; 84132; 84703; 85025; 85379; 87040; 87635; 93005; 93010; 94640; 94667; 94799; 96365; 96367; 99285; C9803; J0456; J0696; J1100; J1650; J2405; J3475; J3480; J3490; J7030; J7060; J7512; J7614

== ENCOUNTER → 2020-08-06 | Outpatient (CLI) | payer BC ==
--- NOTE | 2020-08-06 12:08 | RADIOLOGY REPORT (SQ) ---
EXAM DESCRIPTION: CHEST PA/LATERAL IMAGES COMPLETED DATE/TIME: 08/06/2020 11:47 am REASON FOR STUDY: PNEUMONIA, UNSPECIFIED ORGANISM COMPARISON: 06/20/2020 EXAM PARAMETERS: NUMBER OF VIEWS: two views TECHNIQUE: Digital Frontal and Lateral radiographic views of the chest acquired. RADIATION DOSE: NA LIMITATIONS: none FINDINGS: LUNGS AND PLEURA: Minimal linear opacity in the left base. Either scar or atelectasis. N o consolidation or effusions. No pneumothorax. MEDIASTINUM AND HILAR STRUCTURES: No masses or contour abnormalities. HEART AND VASCULAR STRUCTURES: Heart normal size. No evidence for failure. BONES: No acute findings. HARDWARE: None in the chest. OTHER: No other significant finding. IMPRESSION: NO SIGNIFICANT RADIOGRAPHIC FINDING IN THE CHEST. TECHNICAL DOCUMENTATION: JOB ID: [id number] [email or web address]- All Rights Reserved Reading location - IP/workstation name: [email or web address]
== END ==
LOC: OD 11:32
PROVIDERS: ATTEND Internal Medicine Pulmonary Disease
DX: J18.9 Pneumonia, unspecified organism (principal)
CPT/HCPCS: 71046